=== PATIENT | male | born 1965 | race African-American/Black ===

== ENCOUNTER 2021-03-28 14:48 | Inpatient (IN) | payer SELFPAY ==
[~2021-03-28] VITALS: Ht 175.3 cm; Wt 182.8 kg
[2021-03-28 16:14] LABS: BG BASE EXCESS 0.6 mmol/L (-2.0-2.0); BG CARBOXYHEMOGLOBIN 0.3 % (0.5-1.5); BG DEOXYHEMOGLOBIN 1.1 % (0.0-5.0); BG FRACTION INSPIRED OXYGEN 100; BG HCO3 ACT 24.3 mmol/L (22.0-26.0); BG METHEMOGLOBIN 0.6 % (0.0-1.5); BG OXYGEN SATURATION 98.9 % (92.0-98.5); BG PCO2 36.5 mmHg (35.0-45.0); BG PH 7.441 (7.350-7.450); BG SAMPLE SITE RIGHT RADIAL; BG TOTAL HEMOGLOBIN 16.8 g/dL (12.0-18.0); BG VENT MODE MASK - NRB
[2021-03-28] MEDS ORDERED: IPRATROPIUM/ALBUTEROL 0.5-3(2.5)MG/3ML NEB HHN ONE (16:30)
[2021-03-28] MEDS ORDERED: PREDNISONE 20MG TABLET PO ONE (16:30)
[2021-03-28] MEDS ORDERED: DEXAMETHASONE 10 MG/ML VIAL IV ONE (16:45)
[2021-03-28] MEDS ORDERED: CEFTRIAXONE 1 G PREMIX 50 ML IV ONE (16:45)
[2021-03-28] MEDS ORDERED: AZITHROMYCIN 500 MG in DEXT 5% WATER 250 ML IV SCH ×2 (16:45→20:45)
[2021-03-28 17:14] LABS: HEMATOCRIT. 49.3 % (42.0-52.0); MEAN CORPUSCULAR HEMOGLOBIN 30.7 pg (28.0-32.0); MEAN PLATELET VOLUME 7.5 fl (7.4-10.4); PLATELET 237 x1000/uL (130-400); RED BLOOD CELL COUNT 5.55 mill/uL (4.7-6.1); RED CELL DISTRIBUTION WIDTH 14.5 % (11.6-14.6)
[2021-03-28 17:19] LABS: CHLORIDE 105 mEq/L (98-107)
[2021-03-28 17:39] LABS: PLATELET ESTIMATE NORMAL
[2021-03-28 20:00] VITALS: BP 132/82
[2021-03-28] MEDS ORDERED: NITROGLYCERIN 0.4MG TABLET SL SL PRN (20:45)
[2021-03-28] MEDS ORDERED: DOCUSATE SODIUM 100MG CAPSULE PO PRN (20:45)
[2021-03-28] MEDS ORDERED: ZOLPIDEM TARTRATE 5MG TABLET PO PRN (20:45)
[2021-03-28] MEDS ORDERED: MAGNESIUM/ALUMINUM HYDROXIDE/SIMETHICONE 30ML UDC PO PRN (20:45)
[2021-03-28] MEDS ORDERED: NA PHOS,M-B/NA PHOS,DI-BA ENEMA 118ML PR PRN (20:45)
[2021-03-28] MEDS ORDERED: ALBUTEROL 6.7GM HFA INHALER ORI PRN (20:45)
[2021-03-28] MEDS ORDERED: ONDANSETRON HCL 4MG/2ML INJ IV PRN (20:45)
[2021-03-28] MEDS ORDERED: KETOROLAC 15MG/ML VIAL IV PRN (20:45)
[2021-03-28 21:00] VITALS: BP 132/82
[2021-03-28] MEDS: FAMOTIDINE 20MG TABLET PO SCH (21:59)
[2021-03-28] MEDS: ASCORBIC ACID 500 MG TABLET PO SCH (21:59)
[2021-03-28] MEDS: GUAIFENESIN/DM 600MG/30MG ER TAB 12HR PO SCH (21:59)
[2021-03-28] MEDS: ENOXAPARIN 40MG/0.4ML SYR SUBCUT SCH (22:01)
[2021-03-28] MEDS: ALBUTEROL 6.7GM HFA INHALER ORI SCH (22:23)
[2021-03-28 22:31] LABS: VITAMIN B12 SERUM >2000 pg/mL pg/mL (211-911)
[2021-03-29 00:10] VITALS: BP 131/78
[2021-03-29 00:39] LABS: ETHANOL BLOOD < 10 mg/dL
[2021-03-29 00:44] LABS: CREATINE KINASE MB FRACTION 1.2 ng/mL (0.5-3.6)
[2021-03-29 00:55] LABS: CREATINE KINASE 2208 IU/L (39-308)
[2021-03-29 00:56] LABS: TOTAL IRON BINDING CAPACITY 209 ug/dL (250-450)
[2021-03-29] MEDS: ALBUTEROL 6.7GM HFA INHALER ORI SCH ×4 (01:19→21:36)
[2021-03-29 04:00] VITALS: BP 126/72
[2021-03-29 07:49] LABS: BASOPHILS % 0.3 % (0.0-2.0); HEMATOCRIT. 47.9 % (42.0-52.0); HEMOGLOBIN. 16.3 g/dL (14.0-18.0); LYMPHOCYTES % 12.1 % (20.0-50.0); MEAN CORPUSCULAR HEMOGLOBIN 30.3 pg (28.0-32.0); MEAN CORPUSCULAR VOLUME 89.3 fL (80.0-94.0); MEAN PLATELET VOLUME 8.1 fl (7.4-10.4); MONOCYTES % 14.1 % (2.0-8.0); NEUTROPHILS % 73.5 % (40.0-76.0); PLATELET 277 x1000/uL (130-400); RED BLOOD CELL COUNT 5.37 mill/uL (4.7-6.1); RED CELL DISTRIBUTION WIDTH 14.6 % (11.6-14.6)
[2021-03-29 07:56] LABS: CHLORIDE 106 mEq/L (98-107)
[2021-03-29 08:00] VITALS: BP 138/91
[2021-03-29 08:04] LABS: LDL CHOLESTEROL 88 mg/dL (5-100)
[2021-03-29 08:06] LABS: HDL CHOLESTEROL 41 mg/dL (40-59); PHOSPHORUS 2.8 mg/dL (2.5-4.9)
[2021-03-29 08:21] LABS: CREATINE KINASE 2046 IU/L (39-308)
[2021-03-29] MEDS ORDERED: CEFTRIAXONE 1 G PREMIX 50 ML IV SCH (09:00)
[2021-03-29] MEDS: ZINC SULFATE 220 MG ( 50 ) CAPSULE PO SCH (09:34)
[2021-03-29] MEDS: GUAIFENESIN/DM 600MG/30MG ER TAB 12HR PO SCH ×2 (09:34→21:18)
[2021-03-29] MEDS: FAMOTIDINE 20MG TABLET PO SCH ×2 (09:34→21:18)
[2021-03-29] MEDS: DEXAMETHASONE 10 MG/ML VIAL IV SCH (09:34)
[2021-03-29] MEDS: ENOXAPARIN 40MG/0.4ML SYR SUBCUT SCH ×2 (09:34→21:18)
[2021-03-29] MEDS: CHOLECALCIFEROL (D3) 1000 UNIT TABLET PO SCH (09:34)
[2021-03-29] MEDS: ASCORBIC ACID 500 MG TABLET PO SCH ×2 (09:34→21:18)
[2021-03-29 12:00] VITALS: BP 131/85
[2021-03-29 16:00] VITALS: BP 132/99
[2021-03-29] MEDS: CEFTRIAXONE 1,000 MG in DEXTROSE 5% WATER 50 ML IV SCH (16:13)
[2021-03-29] MEDS: AZITHROMYCIN 500MG in DEXTROSE 5% WATER 250ML IV SCH (17:07)
[2021-03-29 20:00] VITALS: BP 121/62
[2021-03-30] VITALS: BP 116/71
[2021-03-30] MEDS: ALBUTEROL 6.7GM HFA INHALER ORI SCH ×4 (03:08→21:07)
[2021-03-30 04:00] VITALS: BP 104/62
[2021-03-30 08:00] VITALS: BP 129/63
[2021-03-30] MEDS: ENOXAPARIN 40MG/0.4ML SYR SUBCUT SCH ×2 (08:54→21:07)
[2021-03-30 08:55] LABS: C REACTIVE PROTEIN QUANT 7.8 mg/L (0.0-3.0)
[2021-03-30] MEDS: GUAIFENESIN/DM 600MG/30MG ER TAB 12HR PO SCH ×2 (08:55→21:06)
[2021-03-30] MEDS: CHOLECALCIFEROL (D3) 1000 UNIT TABLET PO SCH (08:55)
[2021-03-30] MEDS: DEXAMETHASONE 10 MG/ML VIAL IV SCH (08:55)
[2021-03-30] MEDS: ZINC SULFATE 220 MG ( 50 ) CAPSULE PO SCH (08:55)
[2021-03-30] MEDS: FAMOTIDINE 20MG TABLET PO SCH ×2 (08:55→21:06)
[2021-03-30] MEDS: ASCORBIC ACID 500 MG TABLET PO SCH ×2 (08:55→21:06)
[2021-03-30 12:00] VITALS: BP 119/75
[2021-03-30 15:11] LABS: *AMPHETAMINES SCREEN URINE NEGATIVE (NEGATIVE); *BARBITURATES SCREEN URINE NEGATIVE (NEGATIVE); *BENZODIAZEPINES SCREEN URINE NEGATIVE (NEGATIVE); *COCAINE SCREEN URINE NEGATIVE (NEGATIVE); CANNABINOID URINE SCREEN NEGATIVE (NEGATIVE); METHADONE URINE SCREEN NEGATIVE (NEGATIVE); OPIATES URINE SCREEN NEGATIVE (NEGATIVE); PHENCYCLIDINE URINE SCREEN NEGATIVE (NEGATIVE)
[2021-03-30 15:55] VITALS: BP 133/84
[2021-03-30] MEDS: CEFTRIAXONE 1,000 MG in DEXTROSE 5% WATER 50 ML IV SCH (17:00)
[2021-03-30] MEDS: AZITHROMYCIN 500MG in DEXTROSE 5% WATER 250ML IV SCH (17:01)
[2021-03-30 18:47] LABS: CLARITY URINE CLOUDY (CLEAR); COLOR URINE ORANGE (YELLOW); KETONES URINE TRACE (NEGATIVE); LEUKOCYTE ESTERASE URINE 2+ (NEGATIVE); NITRITE URINE POSITIVE (NEGATIVE); OCCULT BLOOD URINE NEGATIVE (NEGATIVE); PH URINE 5.5 (4.5-8.0); PROTEIN URINE 1+ (NEGATIVE); SPECIFIC GRAVITY URINE 1.033 (1.005-1.030)
[2021-03-30 20:00] VITALS: BP_SYST 114; BP_SYST 137; BP_DIAS 66; BP_DIAS 88
[2021-03-31] VITALS: BP 123/67
[2021-03-31 04:00] VITALS: BP 111/77
[2021-03-31] MEDS: ALBUTEROL 6.7GM HFA INHALER ORI SCH ×4 (04:17→21:38)
[2021-03-31 08:00] VITALS: BP 124/70
[2021-03-31] MEDS: FAMOTIDINE 20MG TABLET PO SCH ×2 (08:40→21:36)
[2021-03-31] MEDS: CHOLECALCIFEROL (D3) 1000 UNIT TABLET PO SCH (08:40)
[2021-03-31] MEDS: ZINC SULFATE 220 MG ( 50 ) CAPSULE PO SCH (08:40)
[2021-03-31] MEDS: GUAIFENESIN/DM 600MG/30MG ER TAB 12HR PO SCH ×2 (08:40→21:36)
[2021-03-31] MEDS: ASCORBIC ACID 500 MG TABLET PO SCH ×2 (08:40→21:37)
[2021-03-31] MEDS: ENOXAPARIN 40MG/0.4ML SYR SUBCUT SCH ×2 (08:40→21:36)
[2021-03-31] MEDS: DEXAMETHASONE 10 MG/ML VIAL IV SCH (08:40)
[2021-03-31 12:00] VITALS: BP 136/88
[2021-03-31 16:00] VITALS: BP 141/81
[2021-03-31] MEDS: CEFTRIAXONE 1,000 MG in DEXTROSE 5% WATER 50 ML IV SCH (16:04)
[2021-03-31] MEDS: AZITHROMYCIN 500MG in DEXTROSE 5% WATER 250ML IV SCH (17:07)
[2021-03-31 20:00] VITALS: BP 175/100
[2021-03-31] MEDS: CLONIDINE 0.1MG TABLET PO PRN (21:36)
[2021-04-01] VITALS: BP 148/85
[2021-04-01 04:00] VITALS: BP 133/75
[2021-04-01] MEDS: ALBUTEROL 6.7GM HFA INHALER ORI SCH ×4 (04:03→21:59)
[2021-04-01 08:00] VITALS: BP 119/79
[2021-04-01] MEDS: CHOLECALCIFEROL (D3) 1000 UNIT TABLET PO SCH (09:43)
[2021-04-01] MEDS: GUAIFENESIN/DM 600MG/30MG ER TAB 12HR PO SCH ×2 (09:43→21:59)
[2021-04-01] MEDS: FAMOTIDINE 20MG TABLET PO SCH ×2 (09:43→22:00)
[2021-04-01] MEDS: ZINC SULFATE 220 MG ( 50 ) CAPSULE PO SCH (09:43)
[2021-04-01] MEDS: ENOXAPARIN 40MG/0.4ML SYR SUBCUT SCH ×2 (09:44→21:59)
[2021-04-01] MEDS: DEXAMETHASONE 10 MG/ML VIAL IV SCH (09:44)
[2021-04-01] MEDS: ASCORBIC ACID 500 MG TABLET PO SCH ×2 (09:45→22:00)
[2021-04-01 12:00] VITALS: BP 138/91
[2021-04-01 16:00] VITALS: BP 125/68
[2021-04-01] MEDS: CEFTRIAXONE 1,000 MG in DEXTROSE 5% WATER 50 ML IV SCH (16:56)
[2021-04-01] MEDS: AZITHROMYCIN 500MG in DEXTROSE 5% WATER 250ML IV SCH (17:44)
[2021-04-01 20:00] VITALS: BP 140/73
[2021-04-02] VITALS: BP 124/79
[2021-04-02] MEDS: ALBUTEROL 6.7GM HFA INHALER ORI SCH ×4 (03:30→20:58)
[2021-04-02 04:00] VITALS: BP 139/82
[2021-04-02 08:00] VITALS: BP 142/63
[2021-04-02] MEDS: GUAIFENESIN 200MG/10ML SUGAR FREE UDC PO PRN (09:00)
[2021-04-02] MEDS: ASCORBIC ACID 500 MG TABLET PO SCH ×2 (09:00→20:58)
[2021-04-02] MEDS: GUAIFENESIN/DM 600MG/30MG ER TAB 12HR PO SCH ×2 (09:00→20:58)
[2021-04-02] MEDS: FAMOTIDINE 20MG TABLET PO SCH ×2 (09:00→20:58)
[2021-04-02] MEDS: ZINC SULFATE 220 MG ( 50 ) CAPSULE PO SCH (09:00)
[2021-04-02] MEDS: CHOLECALCIFEROL (D3) 1000 UNIT TABLET PO SCH (09:00)
[2021-04-02] MEDS: DEXAMETHASONE 10 MG/ML VIAL IV SCH (09:00)
[2021-04-02] MEDS: ENOXAPARIN 40MG/0.4ML SYR SUBCUT SCH ×2 (09:01→20:58)
[2021-04-02 12:00] VITALS: BP 128/56
[2021-04-02 16:00] VITALS: BP 137/60
[2021-04-02] MEDS: CEFTRIAXONE 1,000 MG in DEXTROSE 5% WATER 50 ML IV SCH (16:00)
[2021-04-02 20:00] VITALS: BP 142/90
[2021-04-03 00:32] VITALS: BP 126/74
[2021-04-03] MEDS: ALBUTEROL 6.7GM HFA INHALER ORI SCH ×2 (03:40→20:22)
[2021-04-03 04:00] VITALS: BP 145/89
[2021-04-03 08:08] VITALS: BP 118/60
[2021-04-03] MEDS: CHOLECALCIFEROL (D3) 1000 UNIT TABLET PO SCH (08:44)
[2021-04-03] MEDS: ZINC SULFATE 220 MG ( 50 ) CAPSULE PO SCH (08:45)
[2021-04-03] MEDS: FAMOTIDINE 20MG TABLET PO SCH ×2 (08:45→20:11)
[2021-04-03] MEDS: DEXAMETHASONE 10 MG/ML VIAL IV SCH (08:45)
[2021-04-03] MEDS: ASCORBIC ACID 500 MG TABLET PO SCH ×2 (08:45→20:11)
[2021-04-03] MEDS: GUAIFENESIN/DM 600MG/30MG ER TAB 12HR PO SCH ×2 (09:06→20:11)
[2021-04-03] MEDS: ENOXAPARIN 40MG/0.4ML SYR SUBCUT SCH ×2 (09:07→20:12)
[2021-04-03 12:00] VITALS: BP 141/79
[2021-04-03 16:00] VITALS: BP 128/58
[2021-04-03 20:00] VITALS: BP 135/75
[2021-04-04] VITALS (7 sets, daily range): BP systolic 117–142; BP diastolic 64–91
[2021-04-04] MEDS: ALBUTEROL 6.7GM HFA INHALER ORI SCH ×4 (03:00→21:02)
[2021-04-04] MEDS: DEXAMETHASONE 10 MG/ML VIAL IV SCH (08:10)
[2021-04-04] MEDS: FAMOTIDINE 20MG TABLET PO SCH ×2 (08:11→21:03)
[2021-04-04] MEDS: CHOLECALCIFEROL (D3) 1000 UNIT TABLET PO SCH (08:11)
[2021-04-04] MEDS: ENOXAPARIN 40MG/0.4ML SYR SUBCUT SCH ×2 (08:11→21:03)
[2021-04-04] MEDS: GUAIFENESIN/DM 600MG/30MG ER TAB 12HR PO SCH ×2 (08:11→21:03)
[2021-04-04] MEDS: ZINC SULFATE 220 MG ( 50 ) CAPSULE PO SCH (08:11)
[2021-04-04] MEDS: ASCORBIC ACID 500 MG TABLET PO SCH ×2 (08:11→21:02)
[2021-04-04] MEDS: ACETAMINOPHEN 325MG TABLET PO PRN (21:02)
[2021-04-05] MEDS: ALBUTEROL 6.7GM HFA INHALER ORI SCH ×4 (03:00→20:29)
[2021-04-05 04:00] VITALS: BP 120/68
[2021-04-05 08:00] VITALS: BP 129/75
[2021-04-05 08:00] LABS: BASOPHILS % 0.2 % (0.0-2.0); EOSINOPHILS % 0.3 % (0.0-5.0); HEMATOCRIT. 47.2 % (42.0-52.0); HEMOGLOBIN. 16.3 g/dL (14.0-18.0); LYMPHOCYTES % 9.9 % (20.0-50.0); MEAN CORPUSCULAR HEMOGLOBIN 30.8 pg (28.0-32.0); MEAN PLATELET VOLUME 7.7 fl (7.4-10.4); MONOCYTES % 7.9 % (2.0-8.0); NEUTROPHILS % 81.7 % (40.0-76.0); PLATELET 574 x1000/uL (130-400); RED CELL DISTRIBUTION WIDTH 13.9 % (11.6-14.6)
[2021-04-05 08:16] LABS: CHLORIDE 107 mEq/L (98-107)
[2021-04-05] MEDS: DEXAMETHASONE 10 MG/ML VIAL IV SCH (08:40)
[2021-04-05] MEDS: ASCORBIC ACID 500 MG TABLET PO SCH ×2 (09:32→20:28)
[2021-04-05] MEDS: GUAIFENESIN/DM 600MG/30MG ER TAB 12HR PO SCH ×2 (09:32→20:28)
[2021-04-05] MEDS: ENOXAPARIN 40MG/0.4ML SYR SUBCUT SCH ×2 (09:33→20:28)
[2021-04-05] MEDS: FAMOTIDINE 20MG TABLET PO SCH ×2 (09:33→20:28)
[2021-04-05] MEDS: CHOLECALCIFEROL (D3) 1000 UNIT TABLET PO SCH (09:33)
[2021-04-05] MEDS: ZINC SULFATE 220 MG ( 50 ) CAPSULE PO SCH (09:33)
[2021-04-05 12:00] VITALS: BP 133/78
[2021-04-05 16:00] VITALS: BP 131/77
[2021-04-05 20:00] VITALS: BP 129/81
[2021-04-06] VITALS: BP 133/88
[2021-04-06] MEDS: ALBUTEROL 6.7GM HFA INHALER ORI SCH ×4 (03:30→20:44)
[2021-04-06 04:00] VITALS: BP 129/77
[2021-04-06 08:00] VITALS: BP 131/86
[2021-04-06] MEDS: GUAIFENESIN/DM 600MG/30MG ER TAB 12HR PO SCH ×2 (08:51→20:44)
[2021-04-06] MEDS: ASCORBIC ACID 500 MG TABLET PO SCH ×2 (08:51→20:44)
[2021-04-06] MEDS: ZINC SULFATE 220 MG ( 50 ) CAPSULE PO SCH (08:51)
[2021-04-06] MEDS: CHOLECALCIFEROL (D3) 1000 UNIT TABLET PO SCH (08:51)
[2021-04-06] MEDS: FAMOTIDINE 20MG TABLET PO SCH ×2 (08:51→20:44)
[2021-04-06] MEDS: ENOXAPARIN 40MG/0.4ML SYR SUBCUT SCH ×2 (09:00→20:44)
[2021-04-06] MEDS: DEXAMETHASONE 10 MG/ML VIAL IV SCH (10:02)
[2021-04-06 12:00] VITALS: BP 120/66
[2021-04-06 16:00] VITALS: BP 127/69
[2021-04-06 20:00] VITALS: BP 136/76
[2021-04-07] VITALS: BP 134/82
[2021-04-07] MEDS: ALBUTEROL 6.7GM HFA INHALER ORI SCH ×4 (02:15→21:32)
[2021-04-07 04:00] VITALS: BP 123/80
[2021-04-07 08:00] VITALS: BP 121/85
[2021-04-07] MEDS: ASCORBIC ACID 500 MG TABLET PO SCH ×2 (09:04→21:11)
[2021-04-07] MEDS: GUAIFENESIN/DM 600MG/30MG ER TAB 12HR PO SCH ×2 (09:04→21:11)
[2021-04-07] MEDS: CHOLECALCIFEROL (D3) 1000 UNIT TABLET PO SCH (09:04)
[2021-04-07] MEDS: ZINC SULFATE 220 MG ( 50 ) CAPSULE PO SCH (09:04)
[2021-04-07] MEDS: FAMOTIDINE 20MG TABLET PO SCH ×2 (09:04→21:11)
[2021-04-07] MEDS: ENOXAPARIN 40MG/0.4ML SYR SUBCUT SCH ×2 (09:07→21:11)
[2021-04-07 12:00] VITALS: BP 129/81
[2021-04-07 16:00] VITALS: BP 133/87
[2021-04-07 20:00] VITALS: BP 138/82
[2021-04-08] VITALS: BP 135/95
[2021-04-08] MEDS: ALBUTEROL 6.7GM HFA INHALER ORI SCH (02:15)
[2021-04-08 08:00] VITALS: BP 128/80
[2021-04-08] MEDS: FAMOTIDINE 20MG TABLET PO SCH ×2 (08:46→22:09)
[2021-04-08] MEDS: ZINC SULFATE 220 MG ( 50 ) CAPSULE PO SCH (08:46)
[2021-04-08] MEDS: CHOLECALCIFEROL (D3) 1000 UNIT TABLET PO SCH (08:46)
[2021-04-08] MEDS: ASCORBIC ACID 500 MG TABLET PO SCH ×2 (08:46→22:09)
[2021-04-08] MEDS: GUAIFENESIN/DM 600MG/30MG ER TAB 12HR PO SCH ×2 (08:46→22:09)
[2021-04-08] MEDS: ENOXAPARIN 40MG/0.4ML SYR SUBCUT SCH ×2 (08:49→22:09)
[2021-04-08 12:00] VITALS: BP 123/87
[2021-04-08] MEDS: ALBUTEROL (0.083%) 2.5MG/3ML NEB HHN SCH ×2 (12:41→21:58)
[2021-04-08 16:00] VITALS: BP 149/78
[2021-04-08 20:00] VITALS: BP 134/75
[2021-04-09] VITALS (45 sets, daily range): BP systolic 80–160; BP diastolic 26–117
[2021-04-09] MEDS: ALBUTEROL (0.083%) 2.5MG/3ML NEB HHN SCH ×4 (02:54→20:41)
[2021-04-09 08:39] LABS: BG BASE EXCESS -0.6 mmol/L (-2.0-2.0); BG CARBOXYHEMOGLOBIN 0.3 % (0.5-1.5); BG DEOXYHEMOGLOBIN 13.6 % (0.0-5.0); BG FRACTION INSPIRED OXYGEN 99.9; BG HCO3 ACT 22.6 mmol/L (22.0-26.0); BG METHEMOGLOBIN 0.5 % (0.0-1.5); BG OXYGEN SATURATION 86.3 % (92.0-98.5); BG OXYHEMOGLOBIN 85.6 % (94.0-97.0); BG PCO2 33.9 mmHg (35.0-45.0); BG PH 7.442 (7.350-7.450); BG PO2 49.2 mmHg (75.0-100.0); BG SAMPLE SITE RIGHT RADIAL; BG TOTAL HEMOGLOBIN 18.2 g/dL (12.0-18.0); BG VENT MODE MASK - NRB
[2021-04-09] MEDS: ZINC SULFATE 220 MG ( 50 ) CAPSULE PO SCH (09:23)
[2021-04-09] MEDS: ENOXAPARIN 40MG/0.4ML SYR SUBCUT SCH ×2 (09:23→21:16)
[2021-04-09] MEDS: CHOLECALCIFEROL (D3) 1000 UNIT TABLET PO SCH (09:23)
[2021-04-09] MEDS: GUAIFENESIN/DM 600MG/30MG ER TAB 12HR PO SCH ×2 (09:23→21:16)
[2021-04-09] MEDS: ASCORBIC ACID 500 MG TABLET PO SCH ×2 (09:24→21:16)
[2021-04-09] MEDS: FAMOTIDINE 20MG TABLET PO SCH ×2 (09:28→21:16)
[2021-04-09 10:42] LABS: BG BASE EXCESS -1.1 mmol/L (-2.0-2.0); BG CARBOXYHEMOGLOBIN 0.3 % (0.5-1.5); BG DEOXYHEMOGLOBIN 11.7 % (0.0-5.0); BG FRACTION INSPIRED OXYGEN 100; BG HCO3 ACT 22.6 mmol/L (22.0-26.0); BG METHEMOGLOBIN 0.3 % (0.0-1.5); BG OXYGEN SATURATION 88.2 % (92.0-98.5); BG OXYHEMOGLOBIN 87.7 % (94.0-97.0); BG PCO2 35.5 mmHg (35.0-45.0); BG PH 7.422 (7.350-7.450); BG PO2 53.1 mmHg (75.0-100.0); BG SAMPLE SITE RIGHT RADIAL; BG TOTAL RESPIRATORY RATE 41 b/min; BG VENT MODE MASK - BIPAP
[2021-04-09 11:40] LABS: BG BASE EXCESS -1.3 mmol/L (-2.0-2.0); BG CARBOXYHEMOGLOBIN 0.4 % (0.5-1.5); BG DEOXYHEMOGLOBIN 7.3 % (0.0-5.0); BG HCO3 ACT 21.7 mmol/L (22.0-26.0); BG METHEMOGLOBIN 0.6 % (0.0-1.5); BG OXYGEN SATURATION 92.6 % (92.0-98.5); BG OXYHEMOGLOBIN 91.7 % (94.0-97.0); BG PCO2 32.7 mmHg (35.0-45.0); BG PO2 63.2 mmHg (75.0-100.0); BG SAMPLE SITE RIGHT RADIAL; BG TOTAL HEMOGLOBIN 18.1 g/dL (12.0-18.0); BG VENT MODE MASK - BIPAP
[2021-04-09] MEDS: DEXAMETHASONE 10 MG/ML VIAL IV SCH (13:45)
[2021-04-09] MEDS: DEXT 5%/0.45% NACL 1000ML 1,000 ML IV SCH (13:46)
[2021-04-09] MEDS ORDERED: PIPERACILLIN/TAZOBACTAM 3.375 G/VIAL IV SCH (15:00)
[2021-04-09] MEDS: PIPERACILLIN/TAZOBACTAM 3.375G in DEXT 5% WATER 50ML IV SCH ×2 (15:16→21:16)
[2021-04-09] MEDS: AZITHROMYCIN 500 MG in DEXT 5% WATER 250 ML IV SCH (16:03)
[2021-04-09 20:12] LABS: CHLORIDE 114 mEq/L (98-107)
[2021-04-09 20:42] LABS: HEMATOCRIT. 47.8 % (42.0-52.0); HEMOGLOBIN. 16.5 g/dL (14.0-18.0); MEAN CORPUSCULAR HEMOGLOBIN 30.9 pg (28.0-32.0); MEAN CORPUSCULAR VOLUME 89.5 fL (80.0-94.0); MEAN PLATELET VOLUME 8.4 fl (7.4-10.4); PLATELET 631 x1000/uL (130-400); RED BLOOD CELL COUNT 5.35 mill/uL (4.7-6.1); RED CELL DISTRIBUTION WIDTH 14.3 % (11.6-14.6)
[2021-04-09 21:58] LABS: PLATELET ESTIMATE INCREASED
[2021-04-10] VITALS (71 sets, daily range): BP systolic 98–151; BP diastolic 42–106
[2021-04-10] MEDS: ALBUTEROL (0.083%) 2.5MG/3ML NEB HHN SCH ×3 (02:23→20:32)
[2021-04-10] MEDS: PIPERACILLIN/TAZOBACTAM 3.375G in DEXT 5% WATER 50ML IV SCH ×3 (05:11→21:08)
[2021-04-10] MEDS: DEXT 5%/0.45% NACL 1000ML 1,000 ML IV SCH ×2 (05:11→21:07)
[2021-04-10 05:45] LABS: HEMATOCRIT. 48.8 % (42.0-52.0); HEMOGLOBIN. 16.6 g/dL (14.0-18.0); MEAN CORPUSCULAR HEMOGLOBIN 30.5 pg (28.0-32.0); MEAN CORPUSCULAR VOLUME 89.7 fL (80.0-94.0); MEAN PLATELET VOLUME 8.9 fl (7.4-10.4); PLATELET 517 x1000/uL (130-400); RED BLOOD CELL COUNT 5.45 mill/uL (4.7-6.1); RED CELL DISTRIBUTION WIDTH 14.4 % (11.6-14.6)
[2021-04-10 05:48] LABS: CHLORIDE 114 mEq/L (98-107)
[2021-04-10] MEDS: FAMOTIDINE 20MG TABLET PO SCH ×2 (08:08→21:07)
[2021-04-10] MEDS: CHOLECALCIFEROL (D3) 1000 UNIT TABLET PO SCH (08:08)
[2021-04-10] MEDS: ZINC SULFATE 220 MG ( 50 ) CAPSULE PO SCH (08:08)
[2021-04-10] MEDS: GUAIFENESIN/DM 600MG/30MG ER TAB 12HR PO SCH ×2 (08:08→20:45)
[2021-04-10] MEDS: ENOXAPARIN 40MG/0.4ML SYR SUBCUT SCH ×2 (08:09→21:07)
[2021-04-10] MEDS: DEXAMETHASONE 10 MG/ML VIAL IV SCH (08:09)
[2021-04-10] MEDS: ASCORBIC ACID 500 MG TABLET PO SCH ×2 (08:09→21:07)
[2021-04-10 09:33] LABS: BG BASE EXCESS 0.2 mmol/L (-2.0-2.0); BG CARBOXYHEMOGLOBIN 0.3 % (0.5-1.5); BG DEOXYHEMOGLOBIN 11.6 % (0.0-5.0); BG FRACTION INSPIRED OXYGEN 100; BG HCO3 ACT 24.3 mmol/L (22.0-26.0); BG METHEMOGLOBIN 0.1 % (0.0-1.5); BG OXYGEN SATURATION 88.4 % (92.0-98.5); BG PCO2 37.9 mmHg (35.0-45.0); BG PH 7.424 (7.350-7.450); BG PO2 52.5 mmHg (75.0-100.0); BG SAMPLE SITE RIGHT RADIAL; BG TOTAL HEMOGLOBIN 16.8 g/dL (12.0-18.0); BG VENT MODE MASK - BIPAP
[2021-04-10 12:18] LABS: PLATELET ESTIMATE INCREASED
[2021-04-10] MEDS: AZITHROMYCIN 500 MG in DEXT 5% WATER 250 ML IV SCH (15:34)
[2021-04-11] VITALS (39 sets, daily range): BP systolic 82–148; BP diastolic 53–95
[2021-04-11] MEDS: ALBUTEROL (0.083%) 2.5MG/3ML NEB HHN SCH ×4 (01:28→20:42)
[2021-04-11] MEDS: PIPERACILLIN/TAZOBACTAM 3.375G in DEXT 5% WATER 50ML IV SCH ×4 (03:38→21:20)
[2021-04-11] MEDS: GUAIFENESIN/DM 600MG/30MG ER TAB 12HR PO SCH ×2 (08:45→20:45)
[2021-04-11] MEDS: CHOLECALCIFEROL (D3) 1000 UNIT TABLET PO SCH ×2 (09:00→10:32)
[2021-04-11] MEDS: ASCORBIC ACID 500 MG TABLET PO SCH ×3 (09:00→21:00)
[2021-04-11] MEDS: FAMOTIDINE 20MG TABLET PO SCH ×2 (09:00→10:32)
[2021-04-11] MEDS: ZINC SULFATE 220 MG ( 50 ) CAPSULE PO SCH ×2 (09:00→10:32)
[2021-04-11] MEDS: ENOXAPARIN 40MG/0.4ML SYR SUBCUT SCH ×2 (10:32→21:20)
[2021-04-11] MEDS: DEXAMETHASONE 10 MG/ML VIAL IV SCH (10:32)
[2021-04-11] MEDS: DEXT 5%/0.45% NACL 1000ML 1,000 ML IV SCH (12:14)
[2021-04-11] MEDS: AZITHROMYCIN 500 MG in DEXT 5% WATER 250 ML IV SCH (16:55)
[2021-04-11] MEDS: PANTOPRAZOLE SODIUM 40 MG/VIAL IV SCH (21:20)
[2021-04-12] VITALS (66 sets, daily range): BP systolic 68–194; BP diastolic 18–135
[2021-04-12] MEDS: SODIUM CHLORIDE 3% FOR INH 4ML UD NEB INH SCH (00:12)
[2021-04-12] MEDS: ALBUTEROL (0.083%) 2.5MG/3ML NEB HHN SCH ×4 (00:29→17:12)
[2021-04-12] MEDS: DEXT 5%/0.45% NACL 1000ML 1,000 ML IV SCH ×2 (04:02→19:00)
[2021-04-12] MEDS: PIPERACILLIN/TAZOBACTAM 3.375G in DEXT 5% WATER 50ML IV SCH ×4 (04:02→21:25)
[2021-04-12 06:32] LABS: HEMATOCRIT 46.6 % (42.0-52.0); HEMOGLOBIN 15.6 g/dL (14.0-18.0); MEAN CORPUSCULAR VOLUME 89.7 fL (80.0-94.0); PLATELET 514 x1000/uL (130-400); RED BLOOD CELL COUNT 5.19 mill/uL (4.7-6.1); RED CELL DISTRIBUTION WIDTH 14.4 % (11.6-14.6)
[2021-04-12 06:34] LABS: CHLORIDE 115 mEq/L (98-107)
[2021-04-12] MEDS ORDERED: ETOMIDATE 2MG/ML 10ML VIAL IV ONE (07:41)
[2021-04-12] MEDS ORDERED: VECURONIUM BROMIDE 10 MG/VIAL IV ONE (07:41)
[2021-04-12] MEDS ORDERED: SODIUM CHLORIDE 0.9% 10ML VIAL ONE (07:41)
[2021-04-12] MEDS: GUAIFENESIN/DM 600MG/30MG ER TAB 12HR PO SCH ×2 (08:45→21:25)
[2021-04-12 09:30] LABS: BG BASE EXCESS 1.2 mmol/L (-2.0-2.0); BG CARBOXYHEMOGLOBIN 1.2 % (0.5-1.5); BG DEOXYHEMOGLOBIN 14.3 % (0.0-5.0); BG FRACTION INSPIRED OXYGEN 100; BG HCO3 ACT 25.9 mmol/L (22.0-26.0); BG METHEMOGLOBIN 0.5 % (0.0-1.5); BG OXYGEN SATURATION 85.5 % (92.0-98.5); BG PCO2 41.5 mmHg (35.0-45.0); BG PH 7.413 (7.350-7.450); BG PO2 48.9 mmHg (75.0-100.0); BG TOTAL HEMOGLOBIN 16.1 g/dL (12.0-18.0); BG VENT MODE MASK - BIPAP
[2021-04-12] MEDS ORDERED: METOPROLOL TARTRATE 5MG/5ML VIAL IV NR (10:15)
[2021-04-12] MEDS: PANTOPRAZOLE SODIUM 40 MG/VIAL IV SCH (10:23)
[2021-04-12] MEDS: DEXAMETHASONE 10 MG/ML VIAL IV SCH (10:23)
[2021-04-12] MEDS: ENOXAPARIN 40MG/0.4ML SYR SUBCUT SCH ×2 (10:24→21:25)
[2021-04-12] MEDS: ZINC SULFATE 220 MG ( 50 ) CAPSULE PO SCH (10:29)
[2021-04-12] MEDS: CHOLECALCIFEROL (D3) 1000 UNIT TABLET PO SCH (10:30)
[2021-04-12] MEDS: ASCORBIC ACID 500 MG TABLET PO SCH ×2 (10:30→21:25)
[2021-04-12] MEDS ORDERED: LORAZEPAM 2MG/ML CPJ IV SCH (10:45)
[2021-04-12] MEDS: FENTANYL CITRATE/PF 2,500 MCG in SODIUM CHLORIDE 0.9% 200 ML IV PRN (11:23)
[2021-04-12] MEDS: PROPOFOL 10MG/ML 100ML 100 ML IV PRN ×3 (11:24→19:58)
[2021-04-12] MEDS ORDERED: METOPROLOL TARTRATE 5MG/5ML VIAL IV SCH (11:25)
[2021-04-12 11:26] LABS: BG BASE EXCESS -4.2 mmol/L (-2.0-2.0); BG CARBOXYHEMOGLOBIN 0.8 % (0.5-1.5); BG DEOXYHEMOGLOBIN 15.8 % (0.0-5.0); BG FRACTION INSPIRED OXYGEN 100; BG HCO3 ACT 24.9 mmol/L (22.0-26.0); BG METHEMOGLOBIN 0.3 % (0.0-1.5); BG OXYHEMOGLOBIN 83.1 % (94.0-97.0); BG PH 7.222 (7.350-7.450); BG PO2 55.9 mmHg (75.0-100.0); BG SAMPLE SITE LEFT RADIAL; BG TOTAL HEMOGLOBIN 16.8 g/dL (12.0-18.0); BG VENT MODE VENT - AC
[2021-04-12] MEDS ORDERED: SODIUM CHLORIDE 3% FOR INH 15ML VIAL NEB INH SCH (12:30)
[2021-04-12] MEDS: ACETYLCYSTEINE 100MG/ML 10% VIAL 4ML INH SCH (12:42)
[2021-04-12] MEDS: AZITHROMYCIN 500 MG in DEXT 5% WATER 250 ML IV SCH (14:43)
[2021-04-12] MEDS: PHENYLEPHRINE 100 MG in DEXT 5% WATER 240 ML IV PRN (15:32)
[2021-04-12] MEDS: ACETAMINOPHEN 325MG TABLET PO PRN ×2 (16:59→23:58)
[2021-04-12] MEDS: IPRATROPIUM BROMIDE (0.02%) 0.5MG/2.5ML NEB HHN SCH (21:02)
[2021-04-13] VITALS (83 sets, daily range): BP systolic 86–195; BP diastolic 49–104
[2021-04-13] MEDS: IPRATROPIUM BROMIDE (0.02%) 0.5MG/2.5ML NEB HHN SCH ×4 (00:12→21:09)
[2021-04-13] MEDS: ACETYLCYSTEINE 100MG/ML 10% VIAL 4ML INH SCH ×2 (00:12→08:30)
[2021-04-13] MEDS: PROPOFOL 10MG/ML 100ML 100 ML IV PRN ×5 (00:34→19:37)
[2021-04-13] MEDS: PIPERACILLIN/TAZOBACTAM 3.375G in DEXT 5% WATER 50ML IV SCH ×4 (02:48→20:32)
[2021-04-13 05:58] LABS: HEMATOCRIT. 44.8 % (42.0-52.0); HEMOGLOBIN. 14.9 g/dL (14.0-18.0); MEAN CORPUSCULAR HEMOGLOBIN 29.9 pg (28.0-32.0); MEAN CORPUSCULAR VOLUME 90.2 fL (80.0-94.0); MEAN PLATELET VOLUME 8.7 fl (7.4-10.4); PLATELET 433 x1000/uL (130-400); RED BLOOD CELL COUNT 4.96 mill/uL (4.7-6.1); RED CELL DISTRIBUTION WIDTH 14.6 % (11.6-14.6)
[2021-04-13 06:01] LABS: CHLORIDE 114 mEq/L (98-107)
[2021-04-13] MEDS: FENTANYL CITRATE/PF 2,500 MCG in SODIUM CHLORIDE 0.9% 200 ML IV PRN ×2 (07:53→22:25)
[2021-04-13] MEDS: ZINC SULFATE 220 MG ( 50 ) CAPSULE PO SCH (08:09)
[2021-04-13] MEDS: DEXAMETHASONE 10 MG/ML VIAL IV SCH (08:09)
[2021-04-13] MEDS: ASCORBIC ACID 500 MG TABLET PO SCH ×2 (08:09→20:32)
[2021-04-13] MEDS: CHOLECALCIFEROL (D3) 1000 UNIT TABLET PO SCH (08:09)
[2021-04-13] MEDS: ENOXAPARIN 40MG/0.4ML SYR SUBCUT SCH ×2 (08:09→20:32)
[2021-04-13] MEDS: PANTOPRAZOLE SODIUM 40 MG/VIAL IV SCH (08:09)
[2021-04-13] MEDS: GUAIFENESIN/DM 600MG/30MG ER TAB 12HR PO SCH ×2 (08:10→20:32)
[2021-04-13] MEDS: SODIUM CHLORIDE 3% FOR INH 4ML UD NEB INH SCH ×2 (08:31→20:55)
[2021-04-13 09:07] LABS: BG BASE EXCESS -0.1 mmol/L (-2.0-2.0); BG CARBOXYHEMOGLOBIN 0.8 % (0.5-1.5); BG DEOXYHEMOGLOBIN 11.9 % (0.0-5.0); BG FRACTION INSPIRED OXYGEN 100; BG HCO3 ACT 26.2 mmol/L (22.0-26.0); BG METHEMOGLOBIN 0.6 % (0.0-1.5); BG OXYGEN SATURATION 87.9 % (92.0-98.5); BG OXYHEMOGLOBIN 86.7 % (94.0-97.0); BG PCO2 48.5 mmHg (35.0-45.0); BG PO2 53.9 mmHg (75.0-100.0); BG SAMPLE SITE RIGHT RADIAL; BG TOTAL HEMOGLOBIN 15.7 g/dL (12.0-18.0); BG VENT MODE VENT- PRVC
[2021-04-13] MEDS: MIDAZOLAM HCL 100 MG in SODIUM CHLORIDE 0.9% 80 ML IV PRN ×2 (09:51→19:36)
[2021-04-13] MEDS: DEXT 5%/0.45% NACL 1000ML 1,000 ML IV SCH ×2 (11:21→23:10)
[2021-04-13] MEDS ORDERED: DILTIAZEM HCL 5MG/ML 5ML VIAL IV NR (11:30)
[2021-04-13] MEDS ORDERED: DILTIAZEM HCL 5MG/ML 5ML VIAL IV PRN (11:45)
[2021-04-13] MEDS ORDERED: DILTIAZEM HCL 30MG TABLET PO SCH (12:00)
[2021-04-13] MEDS ORDERED: ENOXAPARIN 120MG/0.8ML SYR SUBCUT NR (12:03)
[2021-04-13 12:20] LABS: PLATELET ESTIMATE SLIGHTLY INCREASED
[2021-04-13] MEDS: AZITHROMYCIN 500 MG in DEXT 5% WATER 250 ML IV SCH (14:56)
[2021-04-13] MEDS: DILTIAZEM HCL 60MG TABLET PO SCH ×2 (17:57→23:10)
[2021-04-13] MEDS: ACETAMINOPHEN 325MG TABLET PO PRN (20:32)
[2021-04-13] MEDS ORDERED: ENOXAPARIN 150MG/ML SYR SUBCUT SCH (23:00)
[2021-04-13] MEDS: PHENYLEPHRINE 100 MG in DEXT 5% WATER 240 ML IV PRN (23:10)
[2021-04-14] VITALS (98 sets, daily range): BP systolic 66–155; BP diastolic 20–83
[2021-04-14] MEDS: IPRATROPIUM BROMIDE (0.02%) 0.5MG/2.5ML NEB HHN SCH ×5 (00:30→16:15)
[2021-04-14] MEDS: ACETYLCYSTEINE 100MG/ML 10% VIAL 4ML INH SCH ×3 (00:30→16:15)
[2021-04-14] MEDS: SODIUM CHLORIDE 3% FOR INH 4ML UD NEB INH SCH ×5 (01:15→20:40)
[2021-04-14] MEDS: PROPOFOL 10MG/ML 100ML 100 ML IV PRN ×3 (02:57→18:27)
[2021-04-14] MEDS: PIPERACILLIN/TAZOBACTAM 3.375G in DEXT 5% WATER 50ML IV SCH ×4 (02:57→20:41)
[2021-04-14 06:24] LABS: BASOPHILS % 0.6 % (0.0-2.0); EOSINOPHILS % 0.7 % (0.0-5.0); HEMATOCRIT. 43.5 % (42.0-52.0); HEMOGLOBIN. 14.2 g/dL (14.0-18.0); LYMPHOCYTES % 7.7 % (20.0-50.0); MEAN CORPUSCULAR VOLUME 91.6 fL (80.0-94.0); MEAN PLATELET VOLUME 9.5 fl (7.4-10.4); MONOCYTES % 7.4 % (2.0-8.0); NEUTROPHILS % 83.6 % (40.0-76.0); PLATELET 359 x1000/uL (130-400); RED BLOOD CELL COUNT 4.75 mill/uL (4.7-6.1); RED CELL DISTRIBUTION WIDTH 14.6 % (11.6-14.6)
[2021-04-14 06:31] LABS: CHLORIDE 113 mEq/L (98-107)
[2021-04-14] MEDS: DILTIAZEM HCL 60MG TABLET PO SCH ×4 (06:41→23:22)
[2021-04-14] MEDS: MIDAZOLAM HCL 100 MG in SODIUM CHLORIDE 0.9% 80 ML IV PRN ×2 (07:59→22:26)
[2021-04-14] MEDS ORDERED: SODIUM CHLORIDE 0.9% 10ML VIAL ONE (08:23)
[2021-04-14] MEDS ORDERED: EPINEPHRINE 0.1MG/ML (1:10,000) 10ML SYR ONE (08:23)
[2021-04-14] MEDS ORDERED: DEXTROSE 50% WATER 50ML SYRINGE IV ONE (08:23)
[2021-04-14] MEDS ORDERED: VECURONIUM BROMIDE 10 MG/VIAL IV ONE (08:23)
[2021-04-14] MEDS ORDERED: ATROPINE SULFATE 1MG/10ML SYR ONE (08:23)
[2021-04-14] MEDS: GUAIFENESIN/DM 600MG/30MG ER TAB 12HR PO SCH ×2 (08:25→20:42)
[2021-04-14] MEDS: ASPIRIN 81MG TABLET PO SCH (08:25)
[2021-04-14] MEDS: PANTOPRAZOLE SODIUM 40 MG/VIAL IV SCH (08:25)
[2021-04-14] MEDS: ENOXAPARIN 40MG/0.4ML SYR SUBCUT SCH ×2 (08:25→20:42)
[2021-04-14] MEDS: DEXAMETHASONE 10 MG/ML VIAL IV SCH (08:25)
[2021-04-14] MEDS: ZINC SULFATE 220 MG ( 50 ) CAPSULE PO SCH (08:25)
[2021-04-14] MEDS: ASCORBIC ACID 500 MG TABLET PO SCH ×2 (08:29→20:42)
[2021-04-14] MEDS: CHOLECALCIFEROL (D3) 1000 UNIT TABLET PO SCH (08:29)
[2021-04-14 09:07] LABS: BG BASE EXCESS -1.6 mmol/L (-2.0-2.0); BG CARBOXYHEMOGLOBIN 0.9 % (0.5-1.5); BG DEOXYHEMOGLOBIN 0.7 % (0.0-5.0); BG FRACTION INSPIRED OXYGEN 100; BG HCO3 ACT 25.8 mmol/L (22.0-26.0); BG METHEMOGLOBIN 0.7 % (0.0-1.5); BG OXYGEN SATURATION 99.3 % (92.0-98.5); BG OXYHEMOGLOBIN 97.7 % (94.0-97.0); BG PH 7.297 (7.350-7.450); BG PO2 180.4 mmHg (75.0-100.0); BG SAMPLE SITE RIGHT RADIAL; BG TOTAL HEMOGLOBIN 15.5 g/dL (12.0-18.0); BG VENT MODE PRVC-AC
[2021-04-14] MEDS: FENTANYL CITRATE/PF 2,500 MCG in SODIUM CHLORIDE 0.9% 200 ML IV PRN (15:31)
[2021-04-14] MEDS: ALBUTEROL (0.083%) 2.5MG/3ML NEB HHN PRN (20:41)
[2021-04-15] VITALS (92 sets, daily range): BP systolic 104–148; BP diastolic 54–93
[2021-04-15] MEDS: ACETYLCYSTEINE 100MG/ML 10% VIAL 4ML INH SCH ×3 (00:10→16:29)
[2021-04-15] MEDS: ALBUTEROL (0.083%) 2.5MG/3ML NEB HHN PRN ×2 (00:10→08:45)
[2021-04-15] MEDS: DEXT 5%/0.45% NACL 1000ML 1,000 ML IV SCH ×3 (01:15→23:46)
[2021-04-15] MEDS: SODIUM CHLORIDE 3% FOR INH 4ML UD NEB INH SCH ×3 (06:00→13:56)
[2021-04-15] MEDS: DILTIAZEM HCL 60MG TABLET PO SCH ×4 (07:14→23:46)
[2021-04-15] MEDS: GUAIFENESIN/DM 600MG/30MG ER TAB 12HR PO SCH ×2 (07:51→20:47)
[2021-04-15] MEDS: IPRATROPIUM BROMIDE (0.02%) 0.5MG/2.5ML NEB HHN SCH ×3 (08:13→16:29)
[2021-04-15 08:21] LABS: BG CARBOXYHEMOGLOBIN 0.3 % (0.5-1.5); BG DEOXYHEMOGLOBIN 2.2 % (0.0-5.0); BG FRACTION INSPIRED OXYGEN 100; BG HCO3 ACT 26.9 mmol/L (22.0-26.0); BG METHEMOGLOBIN 0.3 % (0.0-1.5); BG OXYGEN SATURATION 97.8 % (92.0-98.5); BG OXYHEMOGLOBIN 97.2 % (94.0-97.0); BG PCO2 47.9 mmHg (35.0-45.0); BG PH 7.367 (7.350-7.450); BG SAMPLE SITE RIGHT RADIAL; BG TOTAL HEMOGLOBIN 13.4 g/dL (12.0-18.0); BG VENT MODE VENT - AC/PRVC
[2021-04-15 08:51] LABS: HEMOGLOBIN. 12.8 g/dL (14.0-18.0); MEAN CORPUSCULAR HEMOGLOBIN 29.9 pg (28.0-32.0); MEAN CORPUSCULAR VOLUME 91.3 fL (80.0-94.0); MEAN PLATELET VOLUME 9.3 fl (7.4-10.4); PLATELET 338 x1000/uL (130-400); RED BLOOD CELL COUNT 4.27 mill/uL (4.7-6.1); RED CELL DISTRIBUTION WIDTH 14.1 % (11.6-14.6)
[2021-04-15 09:04] LABS: CHLORIDE 110 mEq/L (98-107)
[2021-04-15] MEDS: ASPIRIN 81MG TABLET PO SCH (09:04)
[2021-04-15] MEDS: ZINC SULFATE 220 MG ( 50 ) CAPSULE PO SCH (09:04)
[2021-04-15] MEDS: PANTOPRAZOLE SODIUM 40 MG/VIAL IV SCH (09:04)
[2021-04-15] MEDS: ASCORBIC ACID 500 MG TABLET PO SCH ×2 (09:04→20:47)
[2021-04-15] MEDS: DEXAMETHASONE 10 MG/ML VIAL IV SCH (09:04)
[2021-04-15] MEDS: CHOLECALCIFEROL (D3) 1000 UNIT TABLET PO SCH (09:04)
[2021-04-15] MEDS: ENOXAPARIN 40MG/0.4ML SYR SUBCUT SCH ×2 (09:05→20:47)
[2021-04-15] MEDS: MIDAZOLAM HCL 100 MG in SODIUM CHLORIDE 0.9% 80 ML IV PRN (09:23)
[2021-04-15] MEDS: FENTANYL CITRATE/PF 2,500 MCG in SODIUM CHLORIDE 0.9% 200 ML IV PRN (09:23)
[2021-04-15 11:09] LABS: BG BASE EXCESS 0.5 mmol/L (-2.0-2.0); BG CARBOXYHEMOGLOBIN 0.9 % (0.5-1.5); BG DEOXYHEMOGLOBIN 28.8 % (0.0-5.0); BG FRACTION INSPIRED OXYGEN 100; BG HCO3 ACT 27.8 mmol/L (22.0-26.0); BG METHEMOGLOBIN 0.2 % (0.0-1.5); BG OXYGEN SATURATION 70.9 % (92.0-98.5); BG OXYHEMOGLOBIN 70.1 % (94.0-97.0); BG PCO2 55.7 mmHg (35.0-45.0); BG PH 7.316 (7.350-7.450); BG PO2 36.6 mmHg (75.0-100.0); BG SAMPLE SITE RIGHT RADIAL; BG TOTAL HEMOGLOBIN 14.4 g/dL (12.0-18.0); BG TOTAL RESPIRATORY RATE 30 b/min; BG VENT MODE AC/PRVC
[2021-04-15] MEDS: PROPOFOL 10MG/ML 100ML 100 ML IV PRN ×5 (11:10→22:04)
[2021-04-15 12:56] LABS: BG BASE EXCESS -4.1 mmol/L (-2.0-2.0); BG CARBOXYHEMOGLOBIN 1.2 % (0.5-1.5); BG DEOXYHEMOGLOBIN 6.5 % (0.0-5.0); BG FRACTION INSPIRED OXYGEN 100; BG HCO3 ACT 22.9 mmol/L (22.0-26.0); BG METHEMOGLOBIN 0.5 % (0.0-1.5); BG OXYGEN SATURATION 93.4 % (92.0-98.5); BG OXYHEMOGLOBIN 91.8 % (94.0-97.0); BG PCO2 49.2 mmHg (35.0-45.0); BG PH 7.285 (7.350-7.450); BG PO2 71.2 mmHg (75.0-100.0); BG SAMPLE SITE RIGHT RADIAL; BG VENT MODE AC/PRVC
[2021-04-15] MEDS ORDERED: SODIUM BICARBONATE 8.4% 1 MEQ/ML 50ML SYR IV NR (13:30)
[2021-04-15 13:44] LABS: PLATELET ESTIMATE NORMAL
[2021-04-16] VITALS (67 sets, daily range): BP systolic 100–145; BP diastolic 58–84
[2021-04-16] MEDS: PROPOFOL 10MG/ML 100ML 100 ML IV PRN ×11 (00:08→23:26)
[2021-04-16] MEDS: FENTANYL CITRATE/PF 2,500 MCG in SODIUM CHLORIDE 0.9% 200 ML IV PRN ×3 (03:59→23:51)
[2021-04-16] MEDS: DILTIAZEM HCL 60MG TABLET PO SCH ×3 (05:39→17:53)
[2021-04-16 05:48] LABS: HEMATOCRIT. 37.4 % (42.0-52.0); HEMOGLOBIN. 12.3 g/dL (14.0-18.0); MEAN CORPUSCULAR HEMOGLOBIN 30.1 pg (28.0-32.0); MEAN CORPUSCULAR VOLUME 91.5 fL (80.0-94.0); MEAN PLATELET VOLUME 8.8 fl (7.4-10.4); PLATELET 320 x1000/uL (130-400); RED BLOOD CELL COUNT 4.09 mill/uL (4.7-6.1); RED CELL DISTRIBUTION WIDTH 14.2 % (11.6-14.6)
[2021-04-16 05:50] LABS: CHLORIDE 108 mEq/L (98-107)
[2021-04-16] MEDS: SODIUM CHLORIDE 3% FOR INH 4ML UD NEB INH SCH ×2 (07:48→13:40)
[2021-04-16] MEDS: IPRATROPIUM BROMIDE (0.02%) 0.5MG/2.5ML NEB HHN SCH ×3 (07:48→15:18)
[2021-04-16] MEDS: ACETYLCYSTEINE 100MG/ML 10% VIAL 4ML INH SCH ×2 (07:48→15:18)
[2021-04-16 08:35] LABS: BG BASE EXCESS 0.4 mmol/L (-2.0-2.0); BG CARBOXYHEMOGLOBIN 0.6 % (0.5-1.5); BG DEOXYHEMOGLOBIN 13.1 % (0.0-5.0); BG FRACTION INSPIRED OXYGEN 100; BG HCO3 ACT 27.2 mmol/L (22.0-26.0); BG METHEMOGLOBIN 0.4 % (0.0-1.5); BG OXYGEN SATURATION 86.8 % (92.0-98.5); BG OXYHEMOGLOBIN 85.9 % (94.0-97.0); BG PCO2 52.7 mmHg (35.0-45.0); BG PH 7.331 (7.350-7.450); BG PO2 52.3 mmHg (75.0-100.0); BG SAMPLE SITE RIGHT RADIAL; BG VENT MODE VENT - AC/PRVC
[2021-04-16] MEDS: GUAIFENESIN/DM 600MG/30MG ER TAB 12HR PO SCH (08:45)
[2021-04-16] MEDS: PANTOPRAZOLE SODIUM 40 MG/VIAL IV SCH (09:32)
[2021-04-16] MEDS: GUAIFENESIN 200MG/10ML SUGAR FREE UDC PO PRN (09:32)
[2021-04-16] MEDS: ASCORBIC ACID 500 MG TABLET PO SCH ×2 (09:32→20:51)
[2021-04-16] MEDS: DEXAMETHASONE 10 MG/ML VIAL IV SCH (09:32)
[2021-04-16] MEDS: CHOLECALCIFEROL (D3) 1000 UNIT TABLET PO SCH (09:33)
[2021-04-16] MEDS: ZINC SULFATE 220 MG ( 50 ) CAPSULE PO SCH (09:33)
[2021-04-16] MEDS: ENOXAPARIN 40MG/0.4ML SYR SUBCUT SCH ×2 (09:33→20:51)
[2021-04-16] MEDS: ASPIRIN 81MG TABLET PO SCH (09:33)
[2021-04-16 10:49] LABS: BG BASE EXCESS 2.2 mmol/L (-2.0-2.0); BG CARBOXYHEMOGLOBIN 1.1 % (0.5-1.5); BG DEOXYHEMOGLOBIN 20.4 % (0.0-5.0); BG FRACTION INSPIRED OXYGEN 100; BG HCO3 ACT 30.5 mmol/L (22.0-26.0); BG METHEMOGLOBIN 0.4 % (0.0-1.5); BG OXYGEN SATURATION 79.3 % (92.0-98.5); BG OXYHEMOGLOBIN 78.1 % (94.0-97.0); BG PCO2 64.5 mmHg (35.0-45.0); BG PH 7.293 (7.350-7.450); BG PO2 44.9 mmHg (75.0-100.0); BG SAMPLE SITE RIGHT RADIAL; BG TOTAL HEMOGLOBIN 14.3 g/dL (12.0-18.0); BG VENT MODE PRVC-AC
[2021-04-16 13:02] LABS: BG BASE EXCESS 4.7 mmol/L (-2.0-2.0); BG CARBOXYHEMOGLOBIN 1.1 % (0.5-1.5); BG DEOXYHEMOGLOBIN 7.3 % (0.0-5.0); BG FRACTION INSPIRED OXYGEN 40; BG HCO3 ACT 30.8 mmol/L (22.0-26.0); BG METHEMOGLOBIN 0.4 % (0.0-1.5); BG OXYGEN SATURATION 92.6 % (92.0-98.5); BG OXYHEMOGLOBIN 91.2 % (94.0-97.0); BG PCO2 50.9 mmHg (35.0-45.0); BG PH 7.399 (7.350-7.450); BG PO2 62.8 mmHg (75.0-100.0); BG SAMPLE SITE RIGHT RADIAL; BG TOTAL HEMOGLOBIN 14.2 g/dL (12.0-18.0); BG VENT MODE VENT - AC/PRVC
[2021-04-16 14:44] LABS: PLATELET ESTIMATE NORMAL
[2021-04-16] MEDS: MIDAZOLAM HCL 100 MG in SODIUM CHLORIDE 0.9% 80 ML IV PRN (14:45)
[2021-04-16] MEDS: DEXT 5%/0.45% NACL 1000ML 1,000 ML IV SCH (15:29)
[2021-04-17] VITALS (95 sets, daily range): BP systolic 103–194; BP diastolic 52–126
[2021-04-17] MEDS: PROPOFOL 10MG/ML 100ML 100 ML IV PRN ×8 (01:24→17:18)
[2021-04-17] MEDS: MIDAZOLAM HCL 100 MG in SODIUM CHLORIDE 0.9% 80 ML IV PRN ×2 (01:25→11:59)
[2021-04-17] MEDS: DEXT 5%/0.45% NACL 1000ML 1,000 ML IV SCH ×2 (05:48→22:19)
[2021-04-17] MEDS: DILTIAZEM HCL 60MG TABLET PO SCH ×4 (06:00→17:19)
[2021-04-17 06:28] LABS: HEMATOCRIT. 35.3 % (42.0-52.0); HEMOGLOBIN. 11.7 g/dL (14.0-18.0); MEAN CORPUSCULAR HEMOGLOBIN 29.8 pg (28.0-32.0); MEAN CORPUSCULAR VOLUME 90.1 fL (80.0-94.0); PLATELET 267 x1000/uL (130-400); RED BLOOD CELL COUNT 3.92 mill/uL (4.7-6.1); RED CELL DISTRIBUTION WIDTH 14.3 % (11.6-14.6)
[2021-04-17 07:11] LABS: CHLORIDE 110 mEq/L (98-107)
[2021-04-17] MEDS: FENTANYL CITRATE/PF 2,500 MCG in SODIUM CHLORIDE 0.9% 200 ML IV PRN ×2 (07:38→14:51)
[2021-04-17 07:55] LABS: BG BASE EXCESS 4.9 mmol/L (-2.0-2.0); BG CARBOXYHEMOGLOBIN 0.5 % (0.5-1.5); BG DEOXYHEMOGLOBIN 4.8 % (0.0-5.0); BG FRACTION INSPIRED OXYGEN 100; BG HCO3 ACT 30.9 mmol/L (22.0-26.0); BG METHEMOGLOBIN 0.2 % (0.0-1.5); BG OXYGEN SATURATION 95.2 % (92.0-98.5); BG OXYHEMOGLOBIN 94.5 % (94.0-97.0); BG PCO2 51.9 mmHg (35.0-45.0); BG PH 7.393 (7.350-7.450); BG PO2 73.9 mmHg (75.0-100.0); BG SAMPLE SITE RIGHT RADIAL; BG TOTAL HEMOGLOBIN 12.7 g/dL (12.0-18.0); BG VENT MODE VENT - AC/PRVC
[2021-04-17] MEDS: DEXAMETHASONE 10 MG/ML VIAL IV SCH (08:06)
[2021-04-17] MEDS: ASCORBIC ACID 500 MG TABLET PO SCH ×2 (08:06→20:46)
[2021-04-17] MEDS: PANTOPRAZOLE SODIUM 40 MG/VIAL IV SCH (08:06)
[2021-04-17] MEDS: ENOXAPARIN 40MG/0.4ML SYR SUBCUT SCH ×2 (08:06→20:46)
[2021-04-17] MEDS: ASPIRIN 81MG TABLET PO SCH (08:06)
[2021-04-17] MEDS: ZINC SULFATE 220 MG ( 50 ) CAPSULE PO SCH (08:06)
[2021-04-17] MEDS: CHOLECALCIFEROL (D3) 1000 UNIT TABLET PO SCH (08:06)
[2021-04-17] MEDS: SODIUM CHLORIDE 3% FOR INH 4ML UD NEB INH SCH ×2 (08:46→16:23)
[2021-04-17] MEDS: IPRATROPIUM BROMIDE (0.02%) 0.5MG/2.5ML NEB HHN SCH ×4 (08:46→21:28)
[2021-04-17] MEDS: ACETYLCYSTEINE 100MG/ML 10% VIAL 4ML INH SCH (08:46)
[2021-04-17] MEDS ORDERED: MIDAZOLAM 100MG/100ML PMX 100 ML IV PRN (17:30)
[2021-04-17 22:44] LABS: PLATELET ESTIMATE NORMAL
[2021-04-17] MEDS ORDERED: NOREPINEPHRINE 32 MG in DEXT 5% WATER 218 ML IV PRN (22:45)
[2021-04-17] MEDS ORDERED: ATROPINE SULFATE 1MG/10ML SYR IV NR (23:00)
[2021-04-17 23:21] LABS: CHLORIDE 110 mEq/L (98-107)
[2021-04-18] VITALS (97 sets, daily range): BP systolic 101–229; BP diastolic 57–120
[2021-04-18] MEDS: IPRATROPIUM BROMIDE (0.02%) 0.5MG/2.5ML NEB HHN SCH ×5 (01:03→15:55)
[2021-04-18] MEDS: FENTANYL CITRATE/PF 2,500 MCG in SODIUM CHLORIDE 0.9% 200 ML IV PRN ×3 (02:55→18:43)
[2021-04-18] MEDS: MIDAZOLAM HCL 100 MG in SODIUM CHLORIDE 0.9% 100 ML IV PRN ×3 (05:11→23:47)
[2021-04-18] MEDS: DILTIAZEM HCL 60MG TABLET PO SCH ×2 (06:00)
[2021-04-18 06:02] LABS: CHLORIDE 111 mEq/L (98-107)
[2021-04-18 08:20] LABS: BG BASE EXCESS 3.3 mmol/L (-2.0-2.0); BG CARBOXYHEMOGLOBIN 0.4 % (0.5-1.5); BG DEOXYHEMOGLOBIN 4.6 % (0.0-5.0); BG FRACTION INSPIRED OXYGEN 100; BG HCO3 ACT 29.1 mmol/L (22.0-26.0); BG METHEMOGLOBIN 0.4 % (0.0-1.5); BG OXYGEN SATURATION 95.4 % (92.0-98.5); BG OXYHEMOGLOBIN 94.6 % (94.0-97.0); BG PH 7.391 (7.350-7.450); BG PO2 78.2 mmHg (75.0-100.0); BG SAMPLE SITE RIGHT RADIAL; BG TOTAL HEMOGLOBIN 12.8 g/dL (12.0-18.0); BG TOTAL RESPIRATORY RATE 36 b/min; BG VENT MODE VENT- PRVC
[2021-04-18] MEDS: SODIUM CHLORIDE 3% FOR INH 4ML UD NEB INH SCH ×3 (08:32→15:55)
[2021-04-18 08:57] LABS: HEMATOCRIT. 37.1 % (42.0-52.0); MEAN CORPUSCULAR HEMOGLOBIN 29.8 pg (28.0-32.0); MEAN CORPUSCULAR VOLUME 92.3 fL (80.0-94.0); MEAN PLATELET VOLUME 9.4 fl (7.4-10.4); PLATELET 258 x1000/uL (130-400); RED BLOOD CELL COUNT 4.02 mill/uL (4.7-6.1); RED CELL DISTRIBUTION WIDTH 14.3 % (11.6-14.6)
[2021-04-18] MEDS: ASPIRIN 81MG TABLET PO SCH (09:23)
[2021-04-18] MEDS: ASCORBIC ACID 500 MG TABLET PO SCH ×2 (09:23→21:55)
[2021-04-18] MEDS: DEXAMETHASONE 10 MG/ML VIAL IV SCH (09:23)
[2021-04-18] MEDS: PANTOPRAZOLE SODIUM 40 MG/VIAL IV SCH (09:23)
[2021-04-18] MEDS: CHOLECALCIFEROL (D3) 1000 UNIT TABLET PO SCH (09:24)
[2021-04-18] MEDS: ZINC SULFATE 220 MG ( 50 ) CAPSULE PO SCH (09:24)
[2021-04-18] MEDS: ENOXAPARIN 40MG/0.4ML SYR SUBCUT SCH ×2 (09:24→21:55)
[2021-04-18] MEDS ORDERED: ATROPINE SULFATE 1MG/10ML SYR IV PRN (09:45)
[2021-04-18] MEDS ORDERED: FENTANYL CITRATE/PF 2,500 MCG in SODIUM CHLORIDE 0.9% 200 ML IV PRN (11:00)
[2021-04-18] MEDS: DEXT 5%/0.45% NACL 1000ML 1,000 ML IV SCH (13:14)
[2021-04-18 17:54] LABS: PLATELET ESTIMATE NORMAL
[2021-04-18] MEDS: IPRATROPIUM/ALBUTEROL 0.5-3(2.5)MG/3ML NEB HHN SCH (21:31)
[2021-04-19] VITALS (96 sets, daily range): BP systolic 101–160; BP diastolic 56–107
[2021-04-19] MEDS: SODIUM CHLORIDE 3% FOR INH 4ML UD NEB INH SCH ×4 (00:18→20:20)
[2021-04-19] MEDS: IPRATROPIUM/ALBUTEROL 0.5-3(2.5)MG/3ML NEB HHN SCH ×6 (02:05→20:19)
[2021-04-19] MEDS: FENTANYL CITRATE/PF 2,500 MCG in SODIUM CHLORIDE 0.9% 200 ML IV PRN ×3 (02:14→16:10)
[2021-04-19 05:56] LABS: CHLORIDE 110 mEq/L (98-107); HEMATOCRIT. 35.2 % (42.0-52.0); HEMOGLOBIN. 11.9 g/dL (14.0-18.0); MEAN CORPUSCULAR VOLUME 91.5 fL (80.0-94.0); MEAN PLATELET VOLUME 8.5 fl (7.4-10.4); PLATELET 260 x1000/uL (130-400); RED BLOOD CELL COUNT 3.85 mill/uL (4.7-6.1); RED CELL DISTRIBUTION WIDTH 14.8 % (11.6-14.6)
[2021-04-19] MEDS: DEXT 5%/0.45% NACL 1000ML 1,000 ML IV SCH ×2 (06:12→21:49)
[2021-04-19] MEDS: ZINC SULFATE 220 MG ( 50 ) CAPSULE PO SCH (08:29)
[2021-04-19] MEDS: DEXAMETHASONE 10 MG/ML VIAL IV SCH (08:29)
[2021-04-19] MEDS: ASPIRIN 81MG TABLET PO SCH (08:29)
[2021-04-19] MEDS: CHOLECALCIFEROL (D3) 1000 UNIT TABLET PO SCH (08:29)
[2021-04-19] MEDS: ASCORBIC ACID 500 MG TABLET PO SCH ×2 (08:30→21:49)
[2021-04-19] MEDS: PANTOPRAZOLE SODIUM 40 MG/VIAL IV SCH (08:30)
[2021-04-19] MEDS: ENOXAPARIN 40MG/0.4ML SYR SUBCUT SCH ×2 (08:30→21:49)
[2021-04-19] MEDS: MIDAZOLAM HCL 100 MG in SODIUM CHLORIDE 0.9% 100 ML IV PRN ×2 (09:19→21:53)
[2021-04-19] MEDS ORDERED: ATROPINE SULFATE 1MG/10ML SYR IV PRN (10:00)
[2021-04-19 10:29] LABS: BG BASE EXCESS 4.3 mmol/L (-2.0-2.0); BG CARBOXYHEMOGLOBIN 0.8 % (0.5-1.5); BG DEOXYHEMOGLOBIN 22.4 % (0.0-5.0); BG FRACTION INSPIRED OXYGEN 100; BG HCO3 ACT 32.1 mmol/L (22.0-26.0); BG METHEMOGLOBIN 0.7 % (0.0-1.5); BG OXYGEN SATURATION 77.3 % (92.0-98.5); BG OXYHEMOGLOBIN 76.1 % (94.0-97.0); BG PCO2 62.9 mmHg (35.0-45.0); BG PH 7.326 (7.350-7.450); BG PO2 43.2 mmHg (75.0-100.0); BG SAMPLE SITE RIGHT RADIAL; BG TOTAL HEMOGLOBIN 13.6 g/dL (12.0-18.0); BG VENT MODE VENT - PRVC
[2021-04-19 16:14] LABS: PLATELET ESTIMATE NORMAL
[2021-04-19] MEDS ORDERED: MIDAZOLAM HCL 100 MG in SODIUM CHLORIDE 0.9% 80 ML IV PRN (16:15)
[2021-04-19] MEDS ORDERED: FENTANYL CITRATE/PF 2,500 MCG in SODIUM CHLORIDE 0.9% 200 ML IV PRN (16:15)
[2021-04-20] VITALS (69 sets, daily range): BP systolic 101–142; BP diastolic 46–77
[2021-04-20] MEDS: FENTANYL CITRATE/PF 2,500 MCG in SODIUM CHLORIDE 0.9% 200 ML IV PRN ×4 (00:12→22:20)
[2021-04-20] MEDS: IPRATROPIUM/ALBUTEROL 0.5-3(2.5)MG/3ML NEB HHN SCH ×6 (00:19→20:40)
[2021-04-20] MEDS: MIDAZOLAM HCL 100 MG in SODIUM CHLORIDE 0.9% 100 ML IV PRN ×2 (07:51→17:21)
[2021-04-20] MEDS: SODIUM CHLORIDE 3% FOR INH 4ML UD NEB INH SCH ×3 (08:22→20:39)
[2021-04-20 08:50] LABS: BG BASE EXCESS 4.6 mmol/L (-2.0-2.0); BG CARBOXYHEMOGLOBIN 1.3 % (0.5-1.5); BG DEOXYHEMOGLOBIN 9.7 % (0.0-5.0); BG FRACTION INSPIRED OXYGEN 100; BG METHEMOGLOBIN 0.5 % (0.0-1.5); BG OXYGEN SATURATION 90.1 % (92.0-98.5); BG OXYHEMOGLOBIN 88.5 % (94.0-97.0); BG PCO2 53.9 mmHg (35.0-45.0); BG PH 7.377 (7.350-7.450); BG PO2 57.4 mmHg (75.0-100.0); BG SAMPLE SITE RIGHT RADIAL; BG TOTAL HEMOGLOBIN 12.8 g/dL (12.0-18.0); BG VENT MODE AC/PRVC
[2021-04-20] MEDS: PANTOPRAZOLE SODIUM 40 MG/VIAL IV SCH (09:22)
[2021-04-20] MEDS: ASCORBIC ACID 500 MG TABLET PO SCH ×2 (09:23→20:52)
[2021-04-20] MEDS: DEXAMETHASONE 10 MG/ML VIAL IV SCH (09:23)
[2021-04-20] MEDS: ENOXAPARIN 40MG/0.4ML SYR SUBCUT SCH ×2 (09:23→20:52)
[2021-04-20] MEDS: CHOLECALCIFEROL (D3) 1000 UNIT TABLET PO SCH (09:23)
[2021-04-20] MEDS: ZINC SULFATE 220 MG ( 50 ) CAPSULE PO SCH (09:23)
[2021-04-20] MEDS: ASPIRIN 81MG TABLET PO SCH (09:23)
[2021-04-20 10:52] LABS: HEMATOCRIT. 39.1 % (42.0-52.0); HEMOGLOBIN. 12.6 g/dL (14.0-18.0); MEAN CORPUSCULAR HEMOGLOBIN 30.2 pg (28.0-32.0); MEAN CORPUSCULAR VOLUME 93.5 fL (80.0-94.0); MEAN PLATELET VOLUME 8.9 fl (7.4-10.4); PLATELET 244 x1000/uL (130-400); RED BLOOD CELL COUNT 4.18 mill/uL (4.7-6.1); RED CELL DISTRIBUTION WIDTH 14.8 % (11.6-14.6)
[2021-04-20 11:00] LABS: CHLORIDE 106 mEq/L (98-107)
[2021-04-20 12:17] LABS: PLATELET ESTIMATE NORMAL
[2021-04-20] MEDS: DEXT 5%/0.45% NACL 1000ML 1,000 ML IV SCH (12:28)
[2021-04-21] VITALS (77 sets, daily range): BP systolic 116–176; BP diastolic 42–84
[2021-04-21] MEDS: IPRATROPIUM/ALBUTEROL 0.5-3(2.5)MG/3ML NEB HHN SCH ×7 (00:24→23:37)
[2021-04-21] MEDS: MIDAZOLAM HCL 100 MG in SODIUM CHLORIDE 0.9% 100 ML IV PRN ×4 (00:44→23:30)
[2021-04-21] MEDS: DEXT 5%/0.45% NACL 1000ML 1,000 ML IV SCH ×2 (03:17→17:42)
[2021-04-21] MEDS: FENTANYL CITRATE/PF 2,500 MCG in SODIUM CHLORIDE 0.9% 200 ML IV PRN ×3 (05:38→20:04)
[2021-04-21] MEDS: DEXAMETHASONE 10 MG/ML VIAL IV SCH (08:12)
[2021-04-21] MEDS: ASPIRIN 81MG TABLET PO SCH (08:12)
[2021-04-21] MEDS: CHOLECALCIFEROL (D3) 1000 UNIT TABLET PO SCH (08:12)
[2021-04-21] MEDS: ZINC SULFATE 220 MG ( 50 ) CAPSULE PO SCH (08:12)
[2021-04-21] MEDS: ASCORBIC ACID 500 MG TABLET PO SCH ×2 (08:12→20:04)
[2021-04-21] MEDS: PANTOPRAZOLE SODIUM 40 MG/VIAL IV SCH (08:12)
[2021-04-21] MEDS: ENOXAPARIN 40MG/0.4ML SYR SUBCUT SCH ×2 (08:12→20:04)
[2021-04-21 08:16] LABS: BG BASE EXCESS 4.3 mmol/L (-2.0-2.0); BG CARBOXYHEMOGLOBIN 1.7 % (0.5-1.5); BG DEOXYHEMOGLOBIN 10.5 % (0.0-5.0); BG FRACTION INSPIRED OXYGEN 100; BG HCO3 ACT 30.7 mmol/L (22.0-26.0); BG METHEMOGLOBIN 0.5 % (0.0-1.5); BG OXYGEN SATURATION 89.3 % (92.0-98.5); BG OXYHEMOGLOBIN 87.3 % (94.0-97.0); BG PCO2 53.8 mmHg (35.0-45.0); BG PH 7.374 (7.350-7.450); BG PO2 56.5 mmHg (75.0-100.0); BG SAMPLE SITE RIGHT RADIAL; BG TOTAL HEMOGLOBIN 12.8 g/dL (12.0-18.0); BG VENT MODE PRVC-AC
[2021-04-21 08:17] LABS: CLARITY URINE CLOUDY (CLEAR); COLOR URINE DARK YELLOW (YELLOW); KETONES URINE NEGATIVE (NEGATIVE); LEUKOCYTE ESTERASE URINE 1+ (NEGATIVE); NITRITE URINE NEGATIVE (NEGATIVE); OCCULT BLOOD URINE 3+ (NEGATIVE); PH URINE 5.5 (4.5-8.0); PROTEIN URINE TRACE (NEGATIVE); SPECIFIC GRAVITY URINE 1.031 (1.005-1.030)
[2021-04-21] MEDS: DOCUSATE SODIUM SUGAR FREE 100MG/10ML UDC NG PRN (11:59)
[2021-04-21] MEDS: FLUCONAZOLE 200 MG/100ML BAG 100 ML IV SCH (12:18)
[2021-04-21 12:41] LABS: HEMATOCRIT. 34.5 % (42.0-52.0); HEMOGLOBIN. 11.5 g/dL (14.0-18.0); MEAN CORPUSCULAR HEMOGLOBIN 31.1 pg (28.0-32.0); MEAN CORPUSCULAR VOLUME 92.9 fL (80.0-94.0); MEAN PLATELET VOLUME 9.3 fl (7.4-10.4); PLATELET 209 x1000/uL (130-400); RED BLOOD CELL COUNT 3.71 mill/uL (4.7-6.1); RED CELL DISTRIBUTION WIDTH 15.1 % (11.6-14.6)
[2021-04-21 12:45] LABS: CHLORIDE 104 mEq/L (98-107)
[2021-04-21 13:49] LABS: PLATELET ESTIMATE NORMAL
[2021-04-21] MEDS: ACETAMINOPHEN 325MG TABLET PO PRN (15:09)
[2021-04-22] VITALS (49 sets, daily range): BP systolic 108–167; BP diastolic 64–90
[2021-04-22] MEDS: FENTANYL CITRATE/PF 2,500 MCG in SODIUM CHLORIDE 0.9% 200 ML IV PRN ×3 (02:58→17:21)
[2021-04-22] MEDS: IPRATROPIUM/ALBUTEROL 0.5-3(2.5)MG/3ML NEB HHN SCH ×5 (04:05→20:35)
[2021-04-22] MEDS: MIDAZOLAM HCL 100 MG in SODIUM CHLORIDE 0.9% 100 ML IV PRN ×3 (05:29→19:52)
[2021-04-22 06:56] LABS: CHLORIDE 104 mEq/L (98-107)
[2021-04-22 06:59] LABS: HEMATOCRIT. 33.1 % (42.0-52.0); MEAN CORPUSCULAR HEMOGLOBIN 30.6 pg (28.0-32.0); MEAN CORPUSCULAR VOLUME 92.1 fL (80.0-94.0); MEAN PLATELET VOLUME 8.7 fl (7.4-10.4); PLATELET 228 x1000/uL (130-400); RED CELL DISTRIBUTION WIDTH 15.2 % (11.6-14.6)
[2021-04-22] MEDS: DOCUSATE SODIUM SUGAR FREE 100MG/10ML UDC NG PRN (08:15)
[2021-04-22] MEDS: ZINC SULFATE 220 MG ( 50 ) CAPSULE PO SCH (08:15)
[2021-04-22] MEDS: CHOLECALCIFEROL (D3) 1000 UNIT TABLET PO SCH (08:16)
[2021-04-22] MEDS: ASCORBIC ACID 500 MG TABLET PO SCH ×2 (08:16→20:55)
[2021-04-22] MEDS: ASPIRIN 81MG TABLET PO SCH (08:16)
[2021-04-22] MEDS: ENOXAPARIN 40MG/0.4ML SYR SUBCUT SCH ×2 (08:16→20:55)
[2021-04-22] MEDS: DEXAMETHASONE 10 MG/ML VIAL IV SCH (08:16)
[2021-04-22] MEDS: PANTOPRAZOLE SODIUM 40 MG/VIAL IV SCH (08:16)
[2021-04-22 08:41] LABS: BG BASE EXCESS 4.6 mmol/L (-2.0-2.0); BG CARBOXYHEMOGLOBIN 1.5 % (0.5-1.5); BG DEOXYHEMOGLOBIN 10.1 % (0.0-5.0); BG FRACTION INSPIRED OXYGEN 80; BG HCO3 ACT 30.9 mmol/L (22.0-26.0); BG METHEMOGLOBIN 0.4 % (0.0-1.5); BG OXYGEN SATURATION 89.7 % (92.0-98.5); BG PH 7.376 (7.350-7.450); BG PO2 56.7 mmHg (75.0-100.0); BG SAMPLE SITE LEFT RADIAL; BG TOTAL HEMOGLOBIN 12.1 g/dL (12.0-18.0); BG TOTAL RESPIRATORY RATE 36 b/min; BG VENT MODE VENT- PRVC
[2021-04-22 08:47] LABS: PLATELET ESTIMATE NORMAL
[2021-04-22] MEDS: DEXT 5%/0.45% NACL 1000ML 1,000 ML IV SCH (10:01)
[2021-04-22] MEDS: FLUCONAZOLE 200 MG/100ML BAG 100 ML IV SCH (12:10)
[2021-04-22] MEDS ORDERED: MIDAZOLAM 100MG/100ML PMX 100 ML IV PRN (13:00)
[2021-04-23] VITALS (49 sets, daily range): BP systolic 109–183; BP diastolic 57–95
[2021-04-23] MEDS: IPRATROPIUM/ALBUTEROL 0.5-3(2.5)MG/3ML NEB HHN SCH ×6 (00:24→20:03)
[2021-04-23] MEDS: FENTANYL CITRATE/PF 2,500 MCG in SODIUM CHLORIDE 0.9% 200 ML IV PRN ×4 (00:48→23:20)
[2021-04-23] MEDS: DEXT 5%/0.45% NACL 1000ML 1,000 ML IV SCH ×2 (00:48→17:15)
[2021-04-23] MEDS: MIDAZOLAM HCL 100 MG in SODIUM CHLORIDE 0.9% 100 ML IV PRN ×4 (03:05→23:21)
[2021-04-23 08:15] LABS: BG BASE EXCESS 5.1 mmol/L (-2.0-2.0); BG DEOXYHEMOGLOBIN 8.9 % (0.0-5.0); BG HCO3 ACT 31.9 mmol/L (22.0-26.0); BG METHEMOGLOBIN 0.7 % (0.0-1.5); BG OXYGEN SATURATION 90.9 % (92.0-98.5); BG OXYHEMOGLOBIN 89.4 % (94.0-97.0); BG PCO2 57.6 mmHg (35.0-45.0); BG PH 7.361 (7.350-7.450); BG PO2 59.9 mmHg (75.0-100.0); BG SAMPLE SITE RIGHT RADIAL; BG TOTAL HEMOGLOBIN 11.8 g/dL (12.0-18.0); BG VENT MODE VENT- PRVC
[2021-04-23] MEDS: DEXAMETHASONE 10 MG/ML VIAL IV SCH (09:10)
[2021-04-23] MEDS: PANTOPRAZOLE SODIUM 40 MG/VIAL IV SCH (09:10)
[2021-04-23] MEDS: ASCORBIC ACID 500 MG TABLET PO SCH ×2 (09:11→22:26)
[2021-04-23] MEDS: ENOXAPARIN 40MG/0.4ML SYR SUBCUT SCH ×2 (09:11→22:25)
[2021-04-23] MEDS: ASPIRIN 81MG TABLET PO SCH (09:11)
[2021-04-23] MEDS: CHOLECALCIFEROL (D3) 1000 UNIT TABLET PO SCH (09:11)
[2021-04-23] MEDS: ZINC SULFATE 220 MG ( 50 ) CAPSULE PO SCH (09:11)
[2021-04-23] MEDS: FLUCONAZOLE 200 MG/100ML BAG 100 ML IV SCH (12:19)
[2021-04-23] MEDS: PROPOFOL 10MG/ML 100ML 100 ML IV PRN (14:44)
[2021-04-23] MEDS: ACETYLCYSTEINE 100MG/ML 10% VIAL 4ML INH SCH (16:12)
[2021-04-24] VITALS (49 sets, daily range): BP systolic 123–159; BP diastolic 65–93
[2021-04-24] MEDS: IPRATROPIUM/ALBUTEROL 0.5-3(2.5)MG/3ML NEB HHN SCH ×6 (00:19→20:33)
[2021-04-24] MEDS: ACETYLCYSTEINE 100MG/ML 10% VIAL 4ML INH SCH ×2 (00:19→08:47)
[2021-04-24] MEDS: PROPOFOL 10MG/ML 100ML 100 ML IV PRN ×3 (00:47→20:41)
[2021-04-24] MEDS: FENTANYL CITRATE/PF 2,500 MCG in SODIUM CHLORIDE 0.9% 200 ML IV PRN ×3 (06:28→20:33)
[2021-04-24] MEDS: MIDAZOLAM HCL 100 MG in SODIUM CHLORIDE 0.9% 100 ML IV PRN ×3 (06:29→20:34)
[2021-04-24 07:20] LABS: HEMATOCRIT. 34.3 % (42.0-52.0); MEAN CORPUSCULAR HEMOGLOBIN 30.1 pg (28.0-32.0); MEAN CORPUSCULAR VOLUME 93.7 fL (80.0-94.0); MEAN PLATELET VOLUME 9.7 fl (7.4-10.4); PLATELET 261 x1000/uL (130-400); RED BLOOD CELL COUNT 3.66 mill/uL (4.7-6.1); RED CELL DISTRIBUTION WIDTH 15.8 % (11.6-14.6)
[2021-04-24 07:40] LABS: CHLORIDE 102 mEq/L (98-107)
[2021-04-24] MEDS: DEXT 5%/0.45% NACL 1000ML 1,000 ML IV SCH ×2 (08:13→23:37)
[2021-04-24 08:36] LABS: BG BASE EXCESS 7.6 mmol/L (-2.0-2.0); BG CARBOXYHEMOGLOBIN 0.7 % (0.5-1.5); BG DEOXYHEMOGLOBIN 3.9 % (0.0-5.0); BG FRACTION INSPIRED OXYGEN 100; BG HCO3 ACT 33.7 mmol/L (22.0-26.0); BG METHEMOGLOBIN 0.4 % (0.0-1.5); BG OXYGEN SATURATION 96.1 % (92.0-98.5); BG PCO2 54.8 mmHg (35.0-45.0); BG PH 7.407 (7.350-7.450); BG PO2 81.4 mmHg (75.0-100.0); BG SAMPLE SITE RIGHT RADIAL; BG TOTAL HEMOGLOBIN 11.8 g/dL (12.0-18.0); BG TOTAL RESPIRATORY RATE 40 b/min; BG VENT MODE VENT - AC
[2021-04-24] MEDS: ASPIRIN 81MG TABLET PO SCH (08:44)
[2021-04-24] MEDS: ZINC SULFATE 220 MG ( 50 ) CAPSULE PO SCH (08:44)
[2021-04-24] MEDS: ASCORBIC ACID 500 MG TABLET PO SCH ×2 (08:44→20:43)
[2021-04-24] MEDS: PANTOPRAZOLE SODIUM 40 MG/VIAL IV SCH (08:44)
[2021-04-24] MEDS: ENOXAPARIN 40MG/0.4ML SYR SUBCUT SCH ×2 (08:45→20:43)
[2021-04-24] MEDS: DEXAMETHASONE 10 MG/ML VIAL IV SCH (08:45)
[2021-04-24] MEDS: CHOLECALCIFEROL (D3) 1000 UNIT TABLET PO SCH (08:45)
[2021-04-24] MEDS: ALBUTEROL (0.083%) 2.5MG/3ML NEB HHN PRN ×2 (08:47→14:11)
[2021-04-24] MEDS: FLUCONAZOLE 200 MG/100ML BAG 100 ML IV SCH (11:57)
[2021-04-24 17:28] LABS: PLATELET ESTIMATE NORMAL
[2021-04-25] VITALS (60 sets, daily range): BP systolic 123–174; BP diastolic 55–98
[2021-04-25] MEDS: IPRATROPIUM/ALBUTEROL 0.5-3(2.5)MG/3ML NEB HHN SCH ×6 (01:14→20:56)
[2021-04-25] MEDS: PROPOFOL 10MG/ML 100ML 100 ML IV PRN ×5 (03:28→21:17)
[2021-04-25] MEDS: FENTANYL CITRATE/PF 2,500 MCG in SODIUM CHLORIDE 0.9% 200 ML IV PRN ×3 (04:14→21:13)
[2021-04-25] MEDS: MIDAZOLAM HCL 100 MG in SODIUM CHLORIDE 0.9% 100 ML IV PRN ×3 (04:15→23:21)
[2021-04-25] MEDS: CHOLECALCIFEROL (D3) 1000 UNIT TABLET PO SCH (09:16)
[2021-04-25] MEDS: ASCORBIC ACID 500 MG TABLET PO SCH ×2 (09:16→21:11)
[2021-04-25] MEDS: ASPIRIN 81MG TABLET PO SCH (09:16)
[2021-04-25] MEDS: ZINC SULFATE 220 MG ( 50 ) CAPSULE PO SCH (09:16)
[2021-04-25] MEDS: DEXAMETHASONE 10 MG/ML VIAL IV SCH (09:16)
[2021-04-25] MEDS: PANTOPRAZOLE SODIUM 40 MG/VIAL IV SCH (09:16)
[2021-04-25] MEDS: ENOXAPARIN 40MG/0.4ML SYR SUBCUT SCH ×2 (09:17→21:11)
[2021-04-25 09:23] LABS: BG BASE EXCESS 8.4 mmol/L (-2.0-2.0); BG CARBOXYHEMOGLOBIN 1.7 % (0.5-1.5); BG DEOXYHEMOGLOBIN 2.9 % (0.0-5.0); BG FRACTION INSPIRED OXYGEN 100; BG METHEMOGLOBIN 0.4 % (0.0-1.5); BG PCO2 58.1 mmHg (35.0-45.0); BG PH 7.398 (7.350-7.450); BG PO2 90.7 mmHg (75.0-100.0); BG SAMPLE SITE LEFT RADIAL; BG TOTAL HEMOGLOBIN 12.6 g/dL (12.0-18.0); BG VENT MODE VENT - AC
[2021-04-25] MEDS: CLONIDINE 0.1MG TABLET PO PRN (11:53)
[2021-04-25] MEDS: FLUCONAZOLE 200 MG/100ML BAG 100 ML IV SCH (11:53)
[2021-04-25] MEDS: DEXT 5%/0.45% NACL 1000ML 1,000 ML IV SCH (15:16)
[2021-04-26] VITALS (50 sets, daily range): BP systolic 121–154; BP diastolic 66–106
[2021-04-26] MEDS: PROPOFOL 10MG/ML 100ML 100 ML IV PRN ×7 (00:06→19:07)
[2021-04-26] MEDS: IPRATROPIUM/ALBUTEROL 0.5-3(2.5)MG/3ML NEB HHN SCH ×6 (00:39→20:09)
[2021-04-26] MEDS: FENTANYL CITRATE/PF 2,500 MCG in SODIUM CHLORIDE 0.9% 200 ML IV PRN ×3 (04:15→18:50)
[2021-04-26] MEDS: DEXT 5%/0.45% NACL 1000ML 1,000 ML IV SCH ×2 (05:23→20:11)
[2021-04-26] MEDS: MIDAZOLAM HCL 100 MG in SODIUM CHLORIDE 0.9% 100 ML IV PRN ×3 (06:19→20:34)
[2021-04-26] MEDS: ASPIRIN 81MG TABLET PO SCH (08:00)
[2021-04-26] MEDS: ZINC SULFATE 220 MG ( 50 ) CAPSULE PO SCH (08:00)
[2021-04-26] MEDS: DEXAMETHASONE 10 MG/ML VIAL IV SCH (08:00)
[2021-04-26] MEDS: ENOXAPARIN 40MG/0.4ML SYR SUBCUT SCH ×2 (08:00→20:11)
[2021-04-26] MEDS: PANTOPRAZOLE SODIUM 40 MG/VIAL IV SCH (08:00)
[2021-04-26] MEDS: CHOLECALCIFEROL (D3) 1000 UNIT TABLET PO SCH (08:00)
[2021-04-26 09:16] LABS: BG BASE EXCESS 9.8 mmol/L (-2.0-2.0); BG CARBOXYHEMOGLOBIN 0.8 % (0.5-1.5); BG DEOXYHEMOGLOBIN 3.9 % (0.0-5.0); BG FRACTION INSPIRED OXYGEN 100; BG HCO3 ACT 36.3 mmol/L (22.0-26.0); BG METHEMOGLOBIN 0.5 % (0.0-1.5); BG OXYHEMOGLOBIN 94.8 % (94.0-97.0); BG PCO2 57.6 mmHg (35.0-45.0); BG PH 7.417 (7.350-7.450); BG PO2 86.8 mmHg (75.0-100.0); BG SAMPLE SITE RIGHT RADIAL; BG TOTAL HEMOGLOBIN 12.6 g/dL (12.0-18.0); BG VENT MODE VENT - PRVC
[2021-04-26] MEDS: FLUCONAZOLE 200 MG/100ML BAG 100 ML IV SCH (13:26)
[2021-04-26] MEDS ORDERED: MIDAZOLAM 100MG/100ML PMX 100 ML IV PRN (17:15)
[2021-04-27] VITALS (46 sets, daily range): BP systolic 113–154; BP diastolic 67–90
[2021-04-27] MEDS: IPRATROPIUM/ALBUTEROL 0.5-3(2.5)MG/3ML NEB HHN SCH ×6 (00:21→20:55)
[2021-04-27] MEDS: PROPOFOL 10MG/ML 100ML 100 ML IV PRN ×3 (00:36→11:41)
[2021-04-27] MEDS: MIDAZOLAM HCL 100 MG in SODIUM CHLORIDE 0.9% 100 ML IV PRN ×4 (02:20→22:57)
[2021-04-27] MEDS: FENTANYL CITRATE/PF 2,500 MCG in SODIUM CHLORIDE 0.9% 200 ML IV PRN ×4 (02:32→22:57)
[2021-04-27 06:16] LABS: HEMATOCRIT 33.3 % (42.0-52.0); HEMOGLOBIN 10.9 g/dL (14.0-18.0); MEAN CORPUSCULAR HEMOGLOBIN 30.3 pg (28.0-32.0); MEAN CORPUSCULAR VOLUME 92.3 fL (80.0-94.0); PLATELET 290 x1000/uL (130-400); RED CELL DISTRIBUTION WIDTH 15.4 % (11.6-14.6)
[2021-04-27 06:21] LABS: CHLORIDE 103 mEq/L (98-107)
[2021-04-27 08:42] LABS: BG BASE EXCESS 7.7 mmol/L (-2.0-2.0); BG CARBOXYHEMOGLOBIN 0.9 % (0.5-1.5); BG DEOXYHEMOGLOBIN 4.2 % (0.0-5.0); BG FRACTION INSPIRED OXYGEN 100; BG HCO3 ACT 33.7 mmol/L (22.0-26.0); BG METHEMOGLOBIN 0.5 % (0.0-1.5); BG OXYGEN SATURATION 95.7 % (92.0-98.5); BG OXYHEMOGLOBIN 94.4 % (94.0-97.0); BG PCO2 53.4 mmHg (35.0-45.0); BG PH 7.418 (7.350-7.450); BG PO2 78.9 mmHg (75.0-100.0); BG SAMPLE SITE RIGHT RADIAL; BG TOTAL HEMOGLOBIN 12.4 g/dL (12.0-18.0); BG VENT MODE VENT - PRVC
[2021-04-27] MEDS: PANTOPRAZOLE SODIUM 40 MG/VIAL IV SCH (09:07)
[2021-04-27] MEDS: DEXAMETHASONE 10 MG/ML VIAL IV SCH (09:07)
[2021-04-27] MEDS: ASPIRIN 81MG TABLET PO SCH (09:07)
[2021-04-27] MEDS: ENOXAPARIN 40MG/0.4ML SYR SUBCUT SCH (09:07)
[2021-04-27] MEDS: DEXT 5%/0.45% NACL 1000ML 1,000 ML IV SCH (11:27)
[2021-04-27] MEDS: FLUCONAZOLE 200 MG/100ML BAG 100 ML IV SCH (12:39)
[2021-04-28] VITALS (46 sets, daily range): BP systolic 118–168; BP diastolic 63–95
[2021-04-28] MEDS: IPRATROPIUM/ALBUTEROL 0.5-3(2.5)MG/3ML NEB HHN SCH ×6 (01:30→21:07)
[2021-04-28] MEDS: DEXT 5%/0.45% NACL 1000ML 1,000 ML IV SCH ×2 (03:52→20:00)
[2021-04-28 06:32] LABS: HEMATOCRIT. 34.6 % (42.0-52.0); MEAN CORPUSCULAR HEMOGLOBIN 29.6 pg (28.0-32.0); MEAN CORPUSCULAR VOLUME 93.2 fL (80.0-94.0); MEAN PLATELET VOLUME 9.2 fl (7.4-10.4); PLATELET 290 x1000/uL (130-400); RED BLOOD CELL COUNT 3.71 mill/uL (4.7-6.1); RED CELL DISTRIBUTION WIDTH 15.8 % (11.6-14.6)
[2021-04-28 06:43] LABS: CHLORIDE 100 mEq/L (98-107)
[2021-04-28] MEDS: FENTANYL CITRATE/PF 2,500 MCG in SODIUM CHLORIDE 0.9% 200 ML IV PRN ×3 (06:57→23:13)
[2021-04-28] MEDS: ASPIRIN 81MG TABLET PO SCH (08:18)
[2021-04-28] MEDS: PANTOPRAZOLE SODIUM 40 MG/VIAL IV SCH (08:18)
[2021-04-28] MEDS: DEXAMETHASONE 10 MG/ML VIAL IV SCH (08:18)
[2021-04-28 08:36] LABS: BG BASE EXCESS 7.6 mmol/L (-2.0-2.0); BG CARBOXYHEMOGLOBIN 1.7 % (0.5-1.5); BG FRACTION INSPIRED OXYGEN 100; BG HCO3 ACT 34.3 mmol/L (22.0-26.0); BG METHEMOGLOBIN 0.1 % (0.0-1.5); BG OXYGEN SATURATION 90.8 % (92.0-98.5); BG OXYHEMOGLOBIN 89.2 % (94.0-97.0); BG PCO2 59.1 mmHg (35.0-45.0); BG PH 7.382 (7.350-7.450); BG PO2 61.5 mmHg (75.0-100.0); BG VENT MODE VENT- PRVC
[2021-04-28] MEDS: MIDAZOLAM HCL 100 MG in SODIUM CHLORIDE 0.9% 100 ML IV PRN ×2 (10:15→21:27)
[2021-04-28 10:38] LABS: PLATELET ESTIMATE NORMAL
[2021-04-28] MEDS: FLUCONAZOLE 200 MG/100ML BAG 100 ML IV SCH (12:21)
[2021-04-28] MEDS: ENOXAPARIN 40MG/0.4ML SYR SUBCUT SCH (21:06)
[2021-04-29] VITALS (45 sets, daily range): BP systolic 93–162; BP diastolic 58–97
[2021-04-29] MEDS: IPRATROPIUM/ALBUTEROL 0.5-3(2.5)MG/3ML NEB HHN SCH ×6 (00:36→21:17)
[2021-04-29] MEDS: MIDAZOLAM HCL 100 MG in SODIUM CHLORIDE 0.9% 100 ML IV PRN ×2 (09:12→17:15)
[2021-04-29] MEDS: ENOXAPARIN 40MG/0.4ML SYR SUBCUT SCH ×2 (09:30→21:19)
[2021-04-29] MEDS: ASPIRIN 81MG TABLET PO SCH (09:30)
[2021-04-29] MEDS: PANTOPRAZOLE SODIUM 40 MG/VIAL IV SCH (09:30)
[2021-04-29] MEDS: DEXAMETHASONE 10 MG/ML VIAL IV SCH (09:30)
[2021-04-29 09:44] LABS: BG BASE EXCESS 7.8 mmol/L (-2.0-2.0); BG CARBOXYHEMOGLOBIN 1.7 % (0.5-1.5); BG FRACTION INSPIRED OXYGEN 100; BG HCO3 ACT 32.9 mmol/L (22.0-26.0); BG METHEMOGLOBIN 0.1 % (0.0-1.5); BG OXYGEN SATURATION 92.9 % (92.0-98.5); BG OXYHEMOGLOBIN 91.2 % (94.0-97.0); BG PCO2 48.7 mmHg (35.0-45.0); BG PH 7.448 (7.350-7.450); BG PO2 62.8 mmHg (75.0-100.0); BG SAMPLE SITE LEFT RADIAL; BG TOTAL HEMOGLOBIN 11.9 g/dL (12.0-18.0); BG VENT MODE VENT - PRVC
[2021-04-29] MEDS: PROPOFOL 10MG/ML 100ML 100 ML IV PRN ×6 (10:56→22:49)
[2021-04-29] MEDS: FLUCONAZOLE 200 MG/100ML BAG 100 ML IV SCH (11:44)
[2021-04-29] MEDS: DEXT 5%/0.45% NACL 1000ML 1,000 ML IV SCH (11:53)
[2021-04-29] MEDS: FENTANYL CITRATE/PF 2,500 MCG in SODIUM CHLORIDE 0.9% 200 ML IV PRN ×2 (13:24→21:51)
[2021-04-29] MEDS: DOPAMINE 400MG/250ML PREMIX 250 ML IV PRN (15:15)
[2021-04-29 15:35] LABS: BG BASE EXCESS 2.7 mmol/L (-2.0-2.0); BG CARBOXYHEMOGLOBIN 1.9 % (0.5-1.5); BG FRACTION INSPIRED OXYGEN 100; BG HCO3 ACT 31.4 mmol/L (22.0-26.0); BG OXYGEN SATURATION 58.2 % (92.0-98.5); BG OXYHEMOGLOBIN 57.1 % (94.0-97.0); BG PCO2 69.3 mmHg (35.0-45.0); BG PH 7.274 (7.350-7.450); BG PO2 34.3 mmHg (75.0-100.0); BG SAMPLE SITE RIGHT RADIAL; BG TOTAL HEMOGLOBIN 13.1 g/dL (12.0-18.0); BG VENT MODE VENT - AC PRVC
[2021-04-29 18:21] LABS: BG BASE EXCESS 3.1 mmol/L (-2.0-2.0); BG CARBOXYHEMOGLOBIN 1.9 % (0.5-1.5); BG DEOXYHEMOGLOBIN 37.8 % (0.0-5.0); BG FRACTION INSPIRED OXYGEN 100; BG HCO3 ACT 32.5 mmol/L (22.0-26.0); BG METHEMOGLOBIN 0.4 % (0.0-1.5); BG OXYGEN SATURATION 61.3 % (92.0-98.5); BG OXYHEMOGLOBIN 59.9 % (94.0-97.0); BG PCO2 75.8 mmHg (35.0-45.0); BG SAMPLE SITE RIGHT RADIAL; BG TOTAL HEMOGLOBIN 12.7 g/dL (12.0-18.0); BG VENT MODE VENT - AC PRVC
[2021-04-29] MEDS ORDERED: SODIUM BICARBONATE 8.4% 1 MEQ/ML 50ML SYR IV NR (22:00)
[2021-04-29] MEDS ORDERED: SODIUM BICARBONATE 8.4% 1 MEQ/ML 50ML SYR IV ONE (22:20)
[2021-04-29 23:38] LABS: BG BASE EXCESS 4.7 mmol/L (-2.0-2.0); BG CARBOXYHEMOGLOBIN 1.8 % (0.5-1.5); BG DEOXYHEMOGLOBIN 24.1 % (0.0-5.0); BG FRACTION INSPIRED OXYGEN 100; BG HCO3 ACT 31.9 mmol/L (22.0-26.0); BG METHEMOGLOBIN 0.4 % (0.0-1.5); BG OXYGEN SATURATION 75.4 % (92.0-98.5); BG OXYHEMOGLOBIN 73.7 % (94.0-97.0); BG PCO2 59.6 mmHg (35.0-45.0); BG PH 7.346 (7.350-7.450); BG PO2 39.4 mmHg (75.0-100.0); BG SAMPLE SITE LEFT RADIAL; BG TOTAL HEMOGLOBIN 12.5 g/dL (12.0-18.0); BG VENT MODE PRVC/AC
[2021-04-30] VITALS (65 sets, daily range): BP systolic 93–140; BP diastolic 56–81
[2021-04-30] MEDS: PROPOFOL 10MG/ML 100ML 100 ML IV PRN ×9 (01:05→23:19)
[2021-04-30] MEDS: DOPAMINE 400MG/250ML PREMIX 250 ML IV PRN (01:25)
[2021-04-30] MEDS: IPRATROPIUM/ALBUTEROL 0.5-3(2.5)MG/3ML NEB HHN SCH ×6 (01:43→20:10)
[2021-04-30] MEDS: MIDAZOLAM HCL 100 MG in SODIUM CHLORIDE 0.9% 100 ML IV PRN ×2 (01:48→15:05)
[2021-04-30] MEDS: DEXT 5%/0.45% NACL 1000ML 1,000 ML IV SCH ×2 (03:30→18:15)
[2021-04-30 09:47] LABS: BG BASE EXCESS 6.2 mmol/L (-2.0-2.0); BG CARBOXYHEMOGLOBIN 1.4 % (0.5-1.5); BG FRACTION INSPIRED OXYGEN 100; BG HCO3 ACT 32.4 mmol/L (22.0-26.0); BG METHEMOGLOBIN 0.5 % (0.0-1.5); BG OXYGEN SATURATION 92.9 % (92.0-98.5); BG OXYHEMOGLOBIN 91.1 % (94.0-97.0); BG PCO2 54.7 mmHg (35.0-45.0); BG PH 7.391 (7.350-7.450); BG PO2 64.3 mmHg (75.0-100.0); BG SAMPLE SITE RIGHT RADIAL; BG TOTAL HEMOGLOBIN 11.8 g/dL (12.0-18.0); BG VENT MODE VENT - PRVC
[2021-04-30] MEDS: PANTOPRAZOLE SODIUM 40 MG/VIAL IV SCH (10:52)
[2021-04-30] MEDS: ENOXAPARIN 40MG/0.4ML SYR SUBCUT SCH ×2 (10:52→21:05)
[2021-04-30] MEDS: DEXAMETHASONE 10 MG/ML VIAL IV SCH (10:53)
[2021-04-30] MEDS: ASPIRIN 81MG TABLET PO SCH (10:53)
[2021-04-30] MEDS: FLUCONAZOLE 200 MG/100ML BAG 100 ML IV SCH (11:02)
[2021-04-30] MEDS: FENTANYL CITRATE/PF 2,500 MCG in SODIUM CHLORIDE 0.9% 200 ML IV PRN ×2 (15:05→21:18)
[2021-05-01] VITALS (84 sets, daily range): BP systolic 110–149; BP diastolic 52–90
[2021-05-01] MEDS: IPRATROPIUM/ALBUTEROL 0.5-3(2.5)MG/3ML NEB HHN SCH ×7 (00:08→23:39)
[2021-05-01] MEDS: PROPOFOL 10MG/ML 100ML 100 ML IV PRN ×10 (01:48→23:06)
[2021-05-01] MEDS: MIDAZOLAM HCL 100 MG in SODIUM CHLORIDE 0.9% 100 ML IV PRN ×2 (03:04→14:15)
[2021-05-01] MEDS: FENTANYL CITRATE/PF 2,500 MCG in SODIUM CHLORIDE 0.9% 200 ML IV PRN ×3 (04:41→19:21)
[2021-05-01] MEDS: PANTOPRAZOLE SODIUM 40 MG/VIAL IV SCH (08:17)
[2021-05-01] MEDS: DEXAMETHASONE 10 MG/ML VIAL IV SCH (08:17)
[2021-05-01] MEDS: ASPIRIN 81MG TABLET PO SCH (08:17)
[2021-05-01 08:31] LABS: BG BASE EXCESS 8.7 mmol/L (-2.0-2.0); BG CARBOXYHEMOGLOBIN 0.2 % (0.5-1.5); BG DEOXYHEMOGLOBIN 2.7 % (0.0-5.0); BG FRACTION INSPIRED OXYGEN 100; BG HCO3 ACT 34.2 mmol/L (22.0-26.0); BG METHEMOGLOBIN 0.6 % (0.0-1.5); BG OXYGEN SATURATION 97.3 % (92.0-98.5); BG OXYHEMOGLOBIN 96.5 % (94.0-97.0); BG PCO2 51.7 mmHg (35.0-45.0); BG PH 7.438 (7.350-7.450); BG SAMPLE SITE LEFT RADIAL; BG TOTAL HEMOGLOBIN 10.7 g/dL (12.0-18.0); BG VENT MODE VENT- PRVC
[2021-05-01] MEDS: DEXT 5%/0.45% NACL 1000ML 1,000 ML IV SCH (09:24)
[2021-05-01] MEDS: FLUCONAZOLE 200 MG/100ML BAG 100 ML IV SCH (11:42)
[2021-05-01] MEDS: LACTULOSE 20G/30ML UDC PO PRN ×2 (11:43→20:11)
[2021-05-01] MEDS: BISACODYL 5MG TABLET PO PRN ×2 (14:20→20:11)
[2021-05-01] MEDS ORDERED: NA PHOS,M-B/NA PHOS,DI-BA ENEMA 118ML PR PRN (17:00)
[2021-05-01] MEDS: DOCUSATE SODIUM SUGAR FREE 100MG/10ML UDC NG PRN (20:11)
[2021-05-02] VITALS (64 sets, daily range): BP systolic 113–177; BP diastolic 60–115
[2021-05-02] MEDS: DEXT 5%/0.45% NACL 1000ML 1,000 ML IV SCH ×2 (00:46→18:38)
[2021-05-02] MEDS: MIDAZOLAM HCL 100 MG in SODIUM CHLORIDE 0.9% 80 ML IV PRN ×3 (00:57→23:46)
[2021-05-02] MEDS: PROPOFOL 10MG/ML 100ML 100 ML IV PRN ×8 (02:36→22:07)
[2021-05-02] MEDS: FENTANYL CITRATE/PF 2,500 MCG in SODIUM CHLORIDE 0.9% 200 ML IV PRN ×3 (02:44→18:39)
[2021-05-02] MEDS: IPRATROPIUM/ALBUTEROL 0.5-3(2.5)MG/3ML NEB HHN SCH ×5 (04:21→21:03)
[2021-05-02 07:12] LABS: HEMATOCRIT. 32.2 % (42.0-52.0); HEMOGLOBIN. 10.6 g/dL (14.0-18.0); MEAN CORPUSCULAR HEMOGLOBIN 30.5 pg (28.0-32.0); MEAN CORPUSCULAR VOLUME 92.3 fL (80.0-94.0); MEAN PLATELET VOLUME 8.3 fl (7.4-10.4); PLATELET 353 x1000/uL (130-400); RED BLOOD CELL COUNT 3.49 mill/uL (4.7-6.1); RED CELL DISTRIBUTION WIDTH 15.7 % (11.6-14.6)
[2021-05-02 07:19] LABS: CHLORIDE 100 mEq/L (98-107)
[2021-05-02 09:13] LABS: BG BASE EXCESS 5.6 mmol/L (-2.0-2.0); BG DEOXYHEMOGLOBIN 7.1 % (0.0-5.0); BG FRACTION INSPIRED OXYGEN 100; BG METHEMOGLOBIN 0.6 % (0.0-1.5); BG OXYGEN SATURATION 92.8 % (92.0-98.5); BG OXYHEMOGLOBIN 91.3 % (94.0-97.0); BG PH 7.382 (7.350-7.450); BG PO2 65.5 mmHg (75.0-100.0); BG SAMPLE SITE LEFT RADIAL; BG TOTAL HEMOGLOBIN 11.6 g/dL (12.0-18.0); BG TOTAL RESPIRATORY RATE 40 b/min; BG VENT MODE VENT- PRVC
[2021-05-02] MEDS: DEXAMETHASONE 10 MG/ML VIAL IV SCH (09:14)
[2021-05-02] MEDS: PANTOPRAZOLE SODIUM 40 MG/VIAL IV SCH (09:14)
[2021-05-02] MEDS: ASPIRIN 81MG TABLET PO SCH (09:15)
[2021-05-02] MEDS: FLUCONAZOLE 200 MG/100ML BAG 100 ML IV SCH (11:00)
[2021-05-02] MEDS ORDERED: VECURONIUM BROMIDE 10 MG/VIAL IV ONE (13:00)
[2021-05-02] MEDS ORDERED: LIDOCAINE HCL 1% 20ML VIAL (Pyxis) INJ ONE (13:05)
[2021-05-02 16:06] LABS: PLATELET ESTIMATE NORMAL
[2021-05-03] VITALS (83 sets, daily range): BP systolic 103–184; BP diastolic 49–102
[2021-05-03] MEDS: IPRATROPIUM/ALBUTEROL 0.5-3(2.5)MG/3ML NEB HHN SCH ×6 (00:08→20:53)
[2021-05-03] MEDS: PROPOFOL 10MG/ML 100ML 100 ML IV PRN ×3 (01:31→07:24)
[2021-05-03] MEDS: FENTANYL CITRATE/PF 2,500 MCG in SODIUM CHLORIDE 0.9% 200 ML IV PRN ×3 (03:15→19:07)
[2021-05-03] MEDS: DEXAMETHASONE 10 MG/ML VIAL IV SCH (08:21)
[2021-05-03] MEDS: DEXT 5%/0.45% NACL 1000ML 1,000 ML IV SCH ×2 (08:21→23:12)
[2021-05-03] MEDS: ASPIRIN 81MG TABLET PO SCH (08:21)
[2021-05-03] MEDS: PANTOPRAZOLE SODIUM 40 MG/VIAL IV SCH (08:21)
[2021-05-03 10:12] LABS: BG BASE EXCESS 5.2 mmol/L (-2.0-2.0); BG CARBOXYHEMOGLOBIN 1.7 % (0.5-1.5); BG FRACTION INSPIRED OXYGEN 100; BG HCO3 ACT 30.2 mmol/L (22.0-26.0); BG METHEMOGLOBIN 0.3 % (0.0-1.5); BG OXYGEN SATURATION 84.7 % (92.0-98.5); BG PCO2 46.3 mmHg (35.0-45.0); BG PH 7.432 (7.350-7.450); BG PO2 47.9 mmHg (75.0-100.0); BG SAMPLE SITE LEFT RADIAL; BG TOTAL HEMOGLOBIN 10.2 g/dL (12.0-18.0); BG VENT MODE VENT - PRVC
[2021-05-03] MEDS: MIDAZOLAM HCL 100 MG in SODIUM CHLORIDE 0.9% 80 ML IV PRN ×2 (12:38→22:49)
[2021-05-04] VITALS (83 sets, daily range): BP systolic 113–194; BP diastolic 54–94
[2021-05-04] MEDS: IPRATROPIUM/ALBUTEROL 0.5-3(2.5)MG/3ML NEB HHN SCH ×5 (00:31→16:52)
[2021-05-04] MEDS: FENTANYL CITRATE/PF 2,500 MCG in SODIUM CHLORIDE 0.9% 200 ML IV PRN ×4 (02:32→22:40)
[2021-05-04] MEDS: MIDAZOLAM HCL 100 MG in SODIUM CHLORIDE 0.9% 80 ML IV PRN ×3 (05:58→19:57)
[2021-05-04 06:03] LABS: HEMATOCRIT. 30.3 % (42.0-52.0); HEMOGLOBIN. 10.2 g/dL (14.0-18.0); MEAN CORPUSCULAR HEMOGLOBIN 30.7 pg (28.0-32.0); MEAN CORPUSCULAR VOLUME 91.2 fL (80.0-94.0); MEAN PLATELET VOLUME 8.2 fl (7.4-10.4); PLATELET 331 x1000/uL (130-400); RED BLOOD CELL COUNT 3.32 mill/uL (4.7-6.1); RED CELL DISTRIBUTION WIDTH 15.3 % (11.6-14.6)
[2021-05-04 06:12] LABS: CHLORIDE 99 mEq/L (98-107)
[2021-05-04] MEDS: PANTOPRAZOLE SODIUM 40 MG/VIAL IV SCH (08:15)
[2021-05-04] MEDS: DEXAMETHASONE 10 MG/ML VIAL IV SCH (08:16)
[2021-05-04] MEDS: ASPIRIN 81MG TABLET PO SCH (08:16)
[2021-05-04 08:56] LABS: NUCLEATED RED BLOOD CELLS 1 /100 WBC; PLATELET ESTIMATE NORMAL
[2021-05-04 09:07] LABS: BG BASE EXCESS 5.7 mmol/L (-2.0-2.0); BG CARBOXYHEMOGLOBIN 2.1 % (0.5-1.5); BG DEOXYHEMOGLOBIN 15.4 % (0.0-5.0); BG FRACTION INSPIRED OXYGEN 100; BG HCO3 ACT 31.5 mmol/L (22.0-26.0); BG METHEMOGLOBIN 0.4 % (0.0-1.5); BG OXYGEN SATURATION 84.2 % (92.0-98.5); BG OXYHEMOGLOBIN 82.1 % (94.0-97.0); BG PCO2 51.3 mmHg (35.0-45.0); BG PH 7.406 (7.350-7.450); BG PO2 46.9 mmHg (75.0-100.0); BG SAMPLE SITE LEFT RADIAL; BG TOTAL HEMOGLOBIN 11.9 g/dL (12.0-18.0); BG VENT MODE PRVC
[2021-05-04] MEDS: GUAIFENESIN 200MG/10ML SUGAR FREE UDC PO SCH ×2 (12:31→18:14)
[2021-05-04] MEDS: DEXT 5%/0.45% NACL 1000ML 1,000 ML IV SCH (15:19)
[2021-05-04] MEDS: ACETYLCYSTEINE 100MG/ML 10% VIAL 4ML INH SCH (20:23)
[2021-05-04] MEDS: ALBUTEROL (0.083%) 2.5MG/3ML NEB HHN PRN (20:24)
[2021-05-05] VITALS (92 sets, daily range): BP systolic 70–167; BP diastolic 42–98
[2021-05-05] MEDS: GUAIFENESIN 200MG/10ML SUGAR FREE UDC PO SCH ×5 (01:13→23:43)
[2021-05-05] MEDS: MIDAZOLAM HCL 100 MG in SODIUM CHLORIDE 0.9% 80 ML IV PRN ×3 (03:14→16:59)
[2021-05-05] MEDS: ALBUTEROL (0.083%) 2.5MG/3ML NEB HHN PRN (03:23)
[2021-05-05] MEDS: IPRATROPIUM/ALBUTEROL 0.5-3(2.5)MG/3ML NEB HHN SCH ×6 (05:50→21:07)
[2021-05-05] MEDS: FENTANYL CITRATE/PF 2,500 MCG in SODIUM CHLORIDE 0.9% 200 ML IV PRN ×3 (06:04→20:28)
[2021-05-05 06:30] LABS: HEMATOCRIT. 33.6 % (42.0-52.0); HEMOGLOBIN. 11.1 g/dL (14.0-18.0); MEAN CORPUSCULAR HEMOGLOBIN 30.4 pg (28.0-32.0); MEAN PLATELET VOLUME 7.9 fl (7.4-10.4); PLATELET 328 x1000/uL (130-400); RED BLOOD CELL COUNT 3.65 mill/uL (4.7-6.1); RED CELL DISTRIBUTION WIDTH 16.1 % (11.6-14.6)
[2021-05-05 06:37] LABS: CHLORIDE 97 mEq/L (98-107)
[2021-05-05] MEDS: DEXT 5%/0.45% NACL 1000ML 1,000 ML IV SCH ×2 (06:43→21:48)
[2021-05-05] MEDS: PROPOFOL 10MG/ML 100ML 100 ML IV PRN ×10 (06:55→23:45)
[2021-05-05] MEDS ORDERED: VECURONIUM BROMIDE 10 MG/VIAL IV ONE (07:30)
[2021-05-05] MEDS: ACETYLCYSTEINE 100MG/ML 10% VIAL 4ML INH SCH ×2 (07:38→16:40)
[2021-05-05 07:41] LABS: PLATELET ESTIMATE NORMAL
[2021-05-05] MEDS: ACETAMINOPHEN 325MG TABLET PO PRN (08:06)
[2021-05-05] MEDS: PANTOPRAZOLE SODIUM 40 MG/VIAL IV SCH (08:06)
[2021-05-05] MEDS: ASPIRIN 81MG TABLET PO SCH (08:06)
[2021-05-05] MEDS: DEXAMETHASONE 10 MG/ML VIAL IV SCH (08:06)
[2021-05-05 08:30] LABS: BG BASE EXCESS 5.3 mmol/L (-2.0-2.0); BG CARBOXYHEMOGLOBIN 2.1 % (0.5-1.5); BG DEOXYHEMOGLOBIN 41.8 % (0.0-5.0); BG FRACTION INSPIRED OXYGEN 100; BG HCO3 ACT 33.6 mmol/L (22.0-26.0); BG METHEMOGLOBIN 0.4 % (0.0-1.5); BG OXYGEN SATURATION 57.1 % (92.0-98.5); BG OXYHEMOGLOBIN 55.7 % (94.0-97.0); BG PCO2 69.3 mmHg (35.0-45.0); BG PH 7.304 (7.350-7.450); BG SAMPLE SITE LEFT RADIAL; BG TOTAL HEMOGLOBIN 12.3 g/dL (12.0-18.0); BG VENT MODE PRVC
[2021-05-05] MEDS: VECURONIUM BROMIDE 50 MG in DEXTROSE 5% WATER 50 ML IV PRN ×4 (09:10→21:51)
[2021-05-05] MEDS: PHENYLEPHRINE 100 MG in DEXT 5% WATER 240 ML IV PRN ×2 (10:50→21:49)
[2021-05-06] VITALS (97 sets, daily range): BP systolic 100–144; BP diastolic 57–79
[2021-05-06] MEDS: IPRATROPIUM/ALBUTEROL 0.5-3(2.5)MG/3ML NEB HHN SCH ×6 (00:28→21:18)
[2021-05-06] MEDS: ACETYLCYSTEINE 100MG/ML 10% VIAL 4ML INH SCH ×3 (00:28→16:16)
[2021-05-06] MEDS: MIDAZOLAM HCL 100 MG in SODIUM CHLORIDE 0.9% 80 ML IV PRN ×4 (00:52→23:51)
[2021-05-06] MEDS: VECURONIUM BROMIDE 50 MG in DEXTROSE 5% WATER 50 ML IV PRN ×5 (01:52→18:34)
[2021-05-06] MEDS: PROPOFOL 10MG/ML 100ML 100 ML IV PRN ×12 (01:59→22:49)
[2021-05-06] MEDS: FENTANYL CITRATE/PF 2,500 MCG in SODIUM CHLORIDE 0.9% 200 ML IV PRN ×3 (04:28→20:08)
[2021-05-06] MEDS: GUAIFENESIN 200MG/10ML SUGAR FREE UDC PO SCH ×2 (05:53→12:30)
[2021-05-06] MEDS: DEXAMETHASONE 10 MG/ML VIAL IV SCH (08:20)
[2021-05-06] MEDS: PANTOPRAZOLE SODIUM 40 MG/VIAL IV SCH (08:20)
[2021-05-06] MEDS: ASPIRIN 81MG TABLET PO SCH (08:20)
[2021-05-06 08:28] LABS: CHLORIDE 97 mEq/L (98-107); HEMATOCRIT. 30.8 % (42.0-52.0); MEAN CORPUSCULAR HEMOGLOBIN 29.8 pg (28.0-32.0); MEAN CORPUSCULAR VOLUME 91.2 fL (80.0-94.0); MEAN PLATELET VOLUME 8.5 fl (7.4-10.4); PLATELET 317 x1000/uL (130-400); RED BLOOD CELL COUNT 3.37 mill/uL (4.7-6.1); RED CELL DISTRIBUTION WIDTH 15.8 % (11.6-14.6)
[2021-05-06 09:10] LABS: BG BASE EXCESS 1.1 mmol/L (-2.0-2.0); BG CARBOXYHEMOGLOBIN 0.9 % (0.5-1.5); BG DEOXYHEMOGLOBIN 5.1 % (0.0-5.0); BG FRACTION INSPIRED OXYGEN 100; BG METHEMOGLOBIN 0.4 % (0.0-1.5); BG OXYGEN SATURATION 94.8 % (92.0-98.5); BG OXYHEMOGLOBIN 93.6 % (94.0-97.0); BG PCO2 48.6 mmHg (35.0-45.0); BG PH 7.362 (7.350-7.450); BG SAMPLE SITE LEFT RADIAL; BG TOTAL RESPIRATORY RATE 40 b/min; BG VENT MODE VENT- PRVC
[2021-05-06 09:11] LABS: PLATELET ESTIMATE NORMAL
[2021-05-06] MEDS ORDERED: MEROPENEM 500 MG in SODIUM CHLORIDE 0.9% 50 ML IV SCH (11:00)
[2021-05-06 11:41] LABS: BG BASE EXCESS 3.2 mmol/L (-2.0-2.0); BG CARBOXYHEMOGLOBIN 0.7 % (0.5-1.5); BG DEOXYHEMOGLOBIN 5.9 % (0.0-5.0); BG FRACTION INSPIRED OXYGEN 100; BG HCO3 ACT 30.3 mmol/L (22.0-26.0); BG METHEMOGLOBIN 0.4 % (0.0-1.5); BG PCO2 58.3 mmHg (35.0-45.0); BG PH 7.333 (7.350-7.450); BG PO2 74.5 mmHg (75.0-100.0); BG SAMPLE SITE LEFT RADIAL; BG TOTAL HEMOGLOBIN 11.4 g/dL (12.0-18.0); BG TOTAL RESPIRATORY RATE 40 b/min; BG VENT MODE VENT - P/C
[2021-05-06] MEDS: DEXT 5%/0.9% NACL 1,000 ML IV SCH (11:42)
[2021-05-06] MEDS: MEROPENEM 1000MG in NORMAL SALINE 100ML IV SCH ×2 (13:07→20:30)
[2021-05-06] MEDS ORDERED: VANCOMYCIN 2,000 MG in DEXT 5% WATER 500 ML IV NR (14:00)
[2021-05-06] MEDS: PHENYLEPHRINE 100 MG in DEXT 5% WATER 240 ML IV PRN (15:54)
[2021-05-07] VITALS (91 sets, daily range): BP systolic 100–138; BP diastolic 59–80
[2021-05-07] MEDS ORDERED: VANCOMYCIN 1,750 MG in DEXT 5% WATER 250 ML IV SCH
[2021-05-07] MEDS: PROPOFOL 10MG/ML 100ML 100 ML IV PRN ×6 (00:13→11:24)
[2021-05-07] MEDS: ACETYLCYSTEINE 100MG/ML 10% VIAL 4ML INH SCH ×3 (00:28→15:58)
[2021-05-07] MEDS: IPRATROPIUM/ALBUTEROL 0.5-3(2.5)MG/3ML NEB HHN SCH ×5 (00:29→21:07)
[2021-05-07] MEDS: VECURONIUM BROMIDE 50 MG in DEXTROSE 5% WATER 50 ML IV PRN ×5 (00:32→23:37)
[2021-05-07] MEDS: DEXT 5%/0.9% NACL 1,000 ML IV SCH ×2 (03:02→23:59)
[2021-05-07] MEDS: FENTANYL CITRATE/PF 2,500 MCG in SODIUM CHLORIDE 0.9% 200 ML IV PRN ×3 (03:35→18:03)
[2021-05-07] MEDS: MEROPENEM 1000MG in NORMAL SALINE 100ML IV SCH ×3 (05:19→20:51)
[2021-05-07 06:08] LABS: HEMATOCRIT. 30.9 % (42.0-52.0); MEAN CORPUSCULAR HEMOGLOBIN 29.6 pg (28.0-32.0); MEAN CORPUSCULAR VOLUME 91.3 fL (80.0-94.0); MEAN PLATELET VOLUME 8.2 fl (7.4-10.4); PLATELET 283 x1000/uL (130-400); RED BLOOD CELL COUNT 3.39 mill/uL (4.7-6.1); RED CELL DISTRIBUTION WIDTH 15.7 % (11.6-14.6)
[2021-05-07 06:20] LABS: CHLORIDE 100 mEq/L (98-107)
[2021-05-07] MEDS: MIDAZOLAM HCL 100 MG in SODIUM CHLORIDE 0.9% 80 ML IV PRN ×3 (07:22→21:25)
[2021-05-07 08:33] LABS: BG BASE EXCESS 3.1 mmol/L (-2.0-2.0); BG CARBOXYHEMOGLOBIN 0.1 % (0.5-1.5); BG DEOXYHEMOGLOBIN 3.8 % (0.0-5.0); BG HCO3 ACT 31.2 mmol/L (22.0-26.0); BG METHEMOGLOBIN 0.1 % (0.0-1.5); BG OXYGEN SATURATION 96.2 % (92.0-98.5); BG PCO2 67.2 mmHg (35.0-45.0); BG PH 7.285 (7.350-7.450); BG PO2 93.1 mmHg (75.0-100.0); BG SAMPLE SITE RIGHT RADIAL; BG TOTAL HEMOGLOBIN 11.1 g/dL (12.0-18.0); BG VENT MODE VENT - P/C
[2021-05-07 08:42] LABS: NUCLEATED RED BLOOD CELLS 11 /100 WBC; PLATELET ESTIMATE NORMAL
[2021-05-07] MEDS: ASPIRIN 81MG TABLET PO SCH (08:45)
[2021-05-07] MEDS: PANTOPRAZOLE SODIUM 40 MG/VIAL IV SCH (08:45)
[2021-05-07] MEDS: DEXAMETHASONE 10 MG/ML VIAL IV SCH (08:45)
[2021-05-07] MEDS: VANCOMYCIN 1500MG in DEXTROSE 5% WATER 250ML IV SCH ×2 (12:39→20:52)
[2021-05-07 14:13] LABS: BG BASE EXCESS 2.1 mmol/L (-2.0-2.0); BG CARBOXYHEMOGLOBIN 0.5 % (0.5-1.5); BG DEOXYHEMOGLOBIN 2.8 % (0.0-5.0); BG FRACTION INSPIRED OXYGEN 100; BG HCO3 ACT 29.1 mmol/L (22.0-26.0); BG METHEMOGLOBIN 0.4 % (0.0-1.5); BG OXYGEN SATURATION 97.2 % (92.0-98.5); BG OXYHEMOGLOBIN 96.3 % (94.0-97.0); BG PCO2 57.3 mmHg (35.0-45.0); BG PH 7.323 (7.350-7.450); BG PO2 99.8 mmHg (75.0-100.0); BG SAMPLE SITE LEFT RADIAL; BG TOTAL HEMOGLOBIN 10.9 g/dL (12.0-18.0); BG TOTAL RESPIRATORY RATE 41 b/min; BG VENT MODE VENT - P/C
[2021-05-08] VITALS (90 sets, daily range): BP systolic 95–149; BP diastolic 46–78
[2021-05-08] MEDS: IPRATROPIUM/ALBUTEROL 0.5-3(2.5)MG/3ML NEB HHN SCH ×6 (01:02→20:08)
[2021-05-08] MEDS: ACETYLCYSTEINE 100MG/ML 10% VIAL 4ML INH SCH ×3 (01:02→16:20)
[2021-05-08] MEDS: FENTANYL CITRATE/PF 2,500 MCG in SODIUM CHLORIDE 0.9% 200 ML IV PRN ×3 (01:16→16:16)
[2021-05-08 03:39] LABS: CHLORIDE 102 mEq/L (98-107)
[2021-05-08] MEDS: VANCOMYCIN 1500MG in DEXTROSE 5% WATER 250ML IV SCH (03:39)
[2021-05-08] MEDS: MIDAZOLAM HCL 100 MG in SODIUM CHLORIDE 0.9% 80 ML IV PRN ×3 (05:01→20:42)
[2021-05-08] MEDS: VECURONIUM BROMIDE 50 MG in DEXTROSE 5% WATER 50 ML IV PRN ×4 (05:02→22:43)
[2021-05-08 06:01] LABS: HEMATOCRIT. 30.9 % (42.0-52.0); HEMOGLOBIN. 10.2 g/dL (14.0-18.0); MEAN CORPUSCULAR HEMOGLOBIN 29.8 pg (28.0-32.0); MEAN CORPUSCULAR VOLUME 90.2 fL (80.0-94.0); MEAN PLATELET VOLUME 8.2 fl (7.4-10.4); PLATELET 285 x1000/uL (130-400); RED BLOOD CELL COUNT 3.43 mill/uL (4.7-6.1)
[2021-05-08] MEDS: PROPOFOL 10MG/ML 100ML 100 ML IV PRN ×8 (07:34→22:08)
[2021-05-08] MEDS: ASPIRIN 81MG TABLET PO SCH (08:13)
[2021-05-08] MEDS: PANTOPRAZOLE SODIUM 40 MG/VIAL IV SCH (08:13)
[2021-05-08] MEDS: DEXAMETHASONE 10 MG/ML VIAL IV SCH (08:13)
[2021-05-08 10:29] LABS: BG BASE EXCESS 3.6 mmol/L (-2.0-2.0); BG CARBOXYHEMOGLOBIN 1.5 % (0.5-1.5); BG DEOXYHEMOGLOBIN 18.5 % (0.0-5.0); BG FRACTION INSPIRED OXYGEN 100; BG HCO3 ACT 31.5 mmol/L (22.0-26.0); BG METHEMOGLOBIN 0.4 % (0.0-1.5); BG OXYGEN SATURATION 81.1 % (92.0-98.5); BG OXYHEMOGLOBIN 79.6 % (94.0-97.0); BG PCO2 64.2 mmHg (35.0-45.0); BG PH 7.308 (7.350-7.450); BG PO2 45.8 mmHg (75.0-100.0); BG SAMPLE SITE RIGHT RADIAL; BG TOTAL HEMOGLOBIN 12.1 g/dL (12.0-18.0); BG VENT MODE VENT - P/C
[2021-05-08] MEDS: DEXT 5%/0.9% NACL 1,000 ML IV SCH (11:54)
[2021-05-08] MEDS: MEROPENEM 1000MG in NORMAL SALINE 100ML IV SCH ×2 (11:54→20:11)
[2021-05-08 13:37] LABS: BG BASE EXCESS 5.4 mmol/L (-2.0-2.0); BG CARBOXYHEMOGLOBIN 1.5 % (0.5-1.5); BG DEOXYHEMOGLOBIN 18.1 % (0.0-5.0); BG FRACTION INSPIRED OXYGEN 100; BG HCO3 ACT 32.9 mmol/L (22.0-26.0); BG METHEMOGLOBIN 0.2 % (0.0-1.5); BG OXYGEN SATURATION 81.6 % (92.0-98.5); BG OXYHEMOGLOBIN 80.2 % (94.0-97.0); BG PCO2 64.2 mmHg (35.0-45.0); BG PH 7.328 (7.350-7.450); BG SAMPLE SITE RIGHT RADIAL; BG TOTAL HEMOGLOBIN 11.4 g/dL (12.0-18.0); BG VENT MODE VENT - P/C
[2021-05-08] MEDS: VANCOMYCIN 1250MG in DEXTROSE 5% WATER 250ML IV SCH ×2 (14:28→21:17)
[2021-05-08] MEDS: ACETAMINOPHEN 325MG TABLET PO PRN (20:11)
[2021-05-09] VITALS (86 sets, daily range): BP systolic 86–130; BP diastolic 36–74
[2021-05-09] MEDS: PROPOFOL 10MG/ML 100ML 100 ML IV PRN ×13 (00:14→23:57)
[2021-05-09] MEDS: ACETYLCYSTEINE 100MG/ML 10% VIAL 4ML INH SCH ×2 (00:14→08:45)
[2021-05-09] MEDS: IPRATROPIUM/ALBUTEROL 0.5-3(2.5)MG/3ML NEB HHN SCH ×6 (00:14→19:57)
[2021-05-09] MEDS: FENTANYL CITRATE/PF 2,500 MCG in SODIUM CHLORIDE 0.9% 200 ML IV PRN ×4 (00:20→23:36)
[2021-05-09 02:44] LABS: NUCLEATED RED BLOOD CELLS 6 /100 WBC; PLATELET ESTIMATE NORMAL
[2021-05-09] MEDS: DEXT 5%/0.9% NACL 1,000 ML IV SCH ×2 (02:52→16:56)
[2021-05-09] MEDS: VECURONIUM BROMIDE 50 MG in DEXTROSE 5% WATER 50 ML IV PRN ×2 (03:02→09:26)
[2021-05-09] MEDS: MEROPENEM 1000MG in NORMAL SALINE 100ML IV SCH ×3 (04:17→20:00)
[2021-05-09] MEDS: MIDAZOLAM HCL 100 MG in SODIUM CHLORIDE 0.9% 80 ML IV PRN ×3 (04:33→19:44)
[2021-05-09] MEDS: VANCOMYCIN 1250MG in DEXTROSE 5% WATER 250ML IV SCH ×2 (05:00→13:48)
[2021-05-09 08:56] LABS: CHLORIDE 105 mEq/L (98-107); HEMATOCRIT. 28.9 % (42.0-52.0); HEMOGLOBIN. 9.2 g/dL (14.0-18.0); MEAN CORPUSCULAR HEMOGLOBIN 29.5 pg (28.0-32.0); MEAN CORPUSCULAR VOLUME 92.7 fL (80.0-94.0); MEAN PLATELET VOLUME 8.7 fl (7.4-10.4); PLATELET 236 x1000/uL (130-400); RED BLOOD CELL COUNT 3.12 mill/uL (4.7-6.1); RED CELL DISTRIBUTION WIDTH 16.1 % (11.6-14.6)
[2021-05-09] MEDS: ASPIRIN 81MG TABLET PO SCH (09:00)
[2021-05-09] MEDS: DEXAMETHASONE 10 MG/ML VIAL IV SCH (09:11)
[2021-05-09] MEDS: PANTOPRAZOLE SODIUM 40 MG/VIAL IV SCH (09:11)
[2021-05-09 10:54] LABS: BG BASE EXCESS 4.4 mmol/L (-2.0-2.0); BG CARBOXYHEMOGLOBIN 0.6 % (0.5-1.5); BG FRACTION INSPIRED OXYGEN 100; BG HCO3 ACT 30.2 mmol/L (22.0-26.0); BG METHEMOGLOBIN 0.3 % (0.0-1.5); BG OXYHEMOGLOBIN 94.1 % (94.0-97.0); BG PCO2 51.8 mmHg (35.0-45.0); BG PH 7.384 (7.350-7.450); BG PO2 74.5 mmHg (75.0-100.0); BG SAMPLE SITE RIGHT RADIAL; BG TOTAL HEMOGLOBIN 9.9 g/dL (12.0-18.0); BG VENT MODE VENT - P/C
[2021-05-09] MEDS: ENOXAPARIN 40MG/0.4ML SYR SUBCUT SCH ×2 (11:14→20:00)
[2021-05-09 21:56] LABS: PLATELET ESTIMATE NORMAL
[2021-05-10] VITALS (61 sets, daily range): BP systolic 101–247; BP diastolic 58–118
[2021-05-10] MEDS: PROPOFOL 10MG/ML 100ML 100 ML IV PRN ×2 (03:12→07:39)
[2021-05-10] MEDS: MIDAZOLAM HCL 100 MG in SODIUM CHLORIDE 0.9% 80 ML IV PRN ×3 (03:25→21:21)
[2021-05-10] MEDS: IPRATROPIUM/ALBUTEROL 0.5-3(2.5)MG/3ML NEB HHN SCH ×6 (04:11→20:54)
[2021-05-10] MEDS: MEROPENEM 1000MG in NORMAL SALINE 100ML IV SCH ×2 (06:11→12:44)
[2021-05-10 06:33] LABS: CHLORIDE 106 mEq/L (98-107)
[2021-05-10 06:39] LABS: HEMATOCRIT. 28.4 % (42.0-52.0); HEMOGLOBIN. 9.3 g/dL (14.0-18.0); MEAN CORPUSCULAR HEMOGLOBIN 29.9 pg (28.0-32.0); MEAN CORPUSCULAR VOLUME 91.3 fL (80.0-94.0); MEAN PLATELET VOLUME 8.8 fl (7.4-10.4); PLATELET 245 x1000/uL (130-400); RED BLOOD CELL COUNT 3.11 mill/uL (4.7-6.1); RED CELL DISTRIBUTION WIDTH 16.1 % (11.6-14.6)
[2021-05-10] MEDS: FENTANYL CITRATE/PF 2,500 MCG in SODIUM CHLORIDE 0.9% 200 ML IV PRN ×3 (07:05→23:04)
[2021-05-10] MEDS: ENOXAPARIN 40MG/0.4ML SYR SUBCUT SCH ×2 (08:13→20:58)
[2021-05-10] MEDS: DEXAMETHASONE 10 MG/ML VIAL IV SCH (08:13)
[2021-05-10] MEDS: ASPIRIN 81MG TABLET PO SCH (08:13)
[2021-05-10] MEDS: DEXT 5%/0.9% NACL 1,000 ML IV SCH ×2 (08:14→23:51)
[2021-05-10 09:58] LABS: BG BASE EXCESS 2.7 mmol/L (-2.0-2.0); BG CARBOXYHEMOGLOBIN 1.1 % (0.5-1.5); BG DEOXYHEMOGLOBIN 2.5 % (0.0-5.0); BG FRACTION INSPIRED OXYGEN 100; BG HCO3 ACT 27.9 mmol/L (22.0-26.0); BG METHEMOGLOBIN 0.4 % (0.0-1.5); BG OXYGEN SATURATION 97.5 % (92.0-98.5); BG PCO2 45.9 mmHg (35.0-45.0); BG PH 7.402 (7.350-7.450); BG PO2 98.2 mmHg (75.0-100.0); BG SAMPLE SITE LEFT RADIAL; BG TOTAL HEMOGLOBIN 10.9 g/dL (12.0-18.0); BG VENT MODE VENT - P/C
[2021-05-10 10:57] LABS: NUCLEATED RED BLOOD CELLS 3 /100 WBC; PLATELET ESTIMATE NORMAL
[2021-05-10] MEDS ORDERED: CEFTRIAXONE 1 G PREMIX 50 ML IV SCH (15:00)
[2021-05-10] MEDS: CEFTRIAXONE 1,000 MG in DEXTROSE 5% WATER 50 ML IV SCH (17:25)
[2021-05-10] MEDS ORDERED: HYDRALAZINE 20MG/ML VIAL IV PRN (22:30)
[2021-05-10] MEDS ORDERED: LABETALOL 5MG/ML SYR 20 MG/4 ML SYRINGE IV PRN (23:30)
[2021-05-11] VITALS (46 sets, daily range): BP systolic 90–169; BP diastolic 46–80
[2021-05-11] MEDS: IPRATROPIUM/ALBUTEROL 0.5-3(2.5)MG/3ML NEB HHN SCH ×5 (01:18→20:49)
[2021-05-11] MEDS ORDERED: LABETALOL 5MG/ML SYR 20 MG/4 ML SYRINGE IV PRN (02:00)
[2021-05-11] MEDS: PROPOFOL 10MG/ML 100ML 100 ML IV PRN ×10 (05:54→23:14)
[2021-05-11] MEDS: MIDAZOLAM HCL 100 MG in SODIUM CHLORIDE 0.9% 80 ML IV PRN ×3 (05:55→20:54)
[2021-05-11] MEDS: FENTANYL CITRATE/PF 2,500 MCG in SODIUM CHLORIDE 0.9% 200 ML IV PRN ×3 (06:27→20:13)
[2021-05-11 07:13] LABS: HEMATOCRIT. 34.7 % (42.0-52.0); HEMOGLOBIN. 11.1 g/dL (14.0-18.0); MEAN CORPUSCULAR HEMOGLOBIN 29.3 pg (28.0-32.0); MEAN CORPUSCULAR VOLUME 91.9 fL (80.0-94.0); PLATELET 267 x1000/uL (130-400); RED BLOOD CELL COUNT 3.77 mill/uL (4.7-6.1); RED CELL DISTRIBUTION WIDTH 16.3 % (11.6-14.6)
[2021-05-11] MEDS: ENOXAPARIN 40MG/0.4ML SYR SUBCUT SCH ×2 (08:32→20:24)
[2021-05-11] MEDS: ASPIRIN 81MG TABLET PO SCH (08:32)
[2021-05-11] MEDS: DEXAMETHASONE 10 MG/ML VIAL IV SCH (08:32)
[2021-05-11 09:14] LABS: CHLORIDE 109 mEq/L (98-107)
[2021-05-11 09:24] LABS: CREATINE KINASE 81 IU/L (39-308)
[2021-05-11 09:28] LABS: BG BASE EXCESS 0.9 mmol/L (-2.0-2.0); BG CARBOXYHEMOGLOBIN 1.3 % (0.5-1.5); BG DEOXYHEMOGLOBIN 29.3 % (0.0-5.0); BG FRACTION INSPIRED OXYGEN 100; BG HCO3 ACT 30.2 mmol/L (22.0-26.0); BG METHEMOGLOBIN 0.2 % (0.0-1.5); BG OXYGEN SATURATION 70.3 % (92.0-98.5); BG OXYHEMOGLOBIN 69.2 % (94.0-97.0); BG PCO2 74.3 mmHg (35.0-45.0); BG PH 7.227 (7.350-7.450); BG PO2 42.8 mmHg (75.0-100.0); BG SAMPLE SITE RIGHT RADIAL; BG TOTAL HEMOGLOBIN 12.3 g/dL (12.0-18.0); BG VENT MODE VENT - P/C
[2021-05-11 13:53] LABS: NUCLEATED RED BLOOD CELLS 5 /100 WBC; PLATELET ESTIMATE NORMAL
[2021-05-11] MEDS ORDERED: SODIUM CHLORIDE 0.45% 500 ML IV ONE (14:45)
[2021-05-11] MEDS: PHENYLEPHRINE 100 MG in DEXT 5% WATER 240 ML IV PRN (15:44)
[2021-05-11] MEDS: CEFTRIAXONE 1,000 MG in DEXTROSE 5% WATER 50 ML IV SCH (16:49)
[2021-05-12] VITALS (40 sets, daily range): BP systolic 100–129; BP diastolic 47–71
[2021-05-12] MEDS: IPRATROPIUM/ALBUTEROL 0.5-3(2.5)MG/3ML NEB HHN SCH ×6 (00:01→22:05)
[2021-05-12] MEDS: PROPOFOL 10MG/ML 100ML 100 ML IV PRN ×12 (01:20→23:08)
[2021-05-12] MEDS: FENTANYL CITRATE/PF 2,500 MCG in SODIUM CHLORIDE 0.9% 200 ML IV PRN ×3 (03:23→19:33)
[2021-05-12 06:43] LABS: HEMATOCRIT. 29.8 % (42.0-52.0); HEMOGLOBIN. 9.8 g/dL (14.0-18.0); MEAN CORPUSCULAR VOLUME 91.5 fL (80.0-94.0); MEAN PLATELET VOLUME 9.3 fl (7.4-10.4); PLATELET 233 x1000/uL (130-400); RED BLOOD CELL COUNT 3.26 mill/uL (4.7-6.1); RED CELL DISTRIBUTION WIDTH 16.3 % (11.6-14.6)
[2021-05-12 07:09] LABS: CHLORIDE 107 mEq/L (98-107)
[2021-05-12] MEDS: MIDAZOLAM HCL 100 MG in SODIUM CHLORIDE 0.9% 80 ML IV PRN (08:11)
[2021-05-12] MEDS: ASPIRIN 81MG TABLET PO SCH (08:41)
[2021-05-12] MEDS: DEXAMETHASONE 10 MG/ML VIAL IV SCH (08:41)
[2021-05-12] MEDS: ENOXAPARIN 40MG/0.4ML SYR SUBCUT SCH ×2 (08:43→22:29)
[2021-05-12 09:05] LABS: NUCLEATED RED BLOOD CELLS 1 /100 WBC; PLATELET ESTIMATE NORMAL
[2021-05-12 09:12] LABS: BG BASE EXCESS 1.6 mmol/L (-2.0-2.0); BG DEOXYHEMOGLOBIN 12.1 % (0.0-5.0); BG FRACTION INSPIRED OXYGEN 100; BG HCO3 ACT 29.5 mmol/L (22.0-26.0); BG METHEMOGLOBIN 0.2 % (0.0-1.5); BG OXYGEN SATURATION 87.8 % (92.0-98.5); BG OXYHEMOGLOBIN 86.7 % (94.0-97.0); BG PCO2 65.1 mmHg (35.0-45.0); BG PH 7.274 (7.350-7.450); BG PO2 56.4 mmHg (75.0-100.0); BG SAMPLE SITE RIGHT RADIAL; BG TOTAL HEMOGLOBIN 10.5 g/dL (12.0-18.0); BG TOTAL RESPIRATORY RATE 40 b/min; BG VENT MODE VENT - P/C
[2021-05-12] MEDS: PHENYLEPHRINE 100 MG in DEXT 5% WATER 240 ML IV PRN (10:20)
[2021-05-12] MEDS: METRONIDAZOLE 500 MG PREMIX 100 ML IV SCH (16:17)
[2021-05-12] MEDS: CEFTRIAXONE 1,000 MG in DEXTROSE 5% WATER 50 ML IV SCH (16:18)
[2021-05-12] MEDS ORDERED: MIDAZOLAM 100MG/100ML PMX 100 ML IV PRN (17:00)
[2021-05-12] MEDS: MIDAZOLAM HCL 100 MG in SODIUM CHLORIDE 0.9% 100 ML IV PRN (17:21)
[2021-05-13] VITALS (74 sets, daily range): BP systolic 100–136; BP diastolic 58–79
[2021-05-13] MEDS: PROPOFOL 10MG/ML 100ML 100 ML IV PRN ×10 (01:08→22:08)
[2021-05-13] MEDS: IPRATROPIUM/ALBUTEROL 0.5-3(2.5)MG/3ML NEB HHN SCH ×6 (01:12→20:20)
[2021-05-13] MEDS: FENTANYL CITRATE/PF 2,500 MCG in SODIUM CHLORIDE 0.9% 200 ML IV PRN ×3 (02:10→16:27)
[2021-05-13] MEDS: MIDAZOLAM HCL 100 MG in SODIUM CHLORIDE 0.9% 100 ML IV PRN ×3 (02:10→16:26)
[2021-05-13] MEDS: METRONIDAZOLE 500 MG PREMIX 100 ML IV SCH ×3 (03:42→16:26)
[2021-05-13] MEDS: PHENYLEPHRINE 100 MG in DEXT 5% WATER 240 ML IV PRN ×2 (04:03→19:37)
[2021-05-13 06:23] LABS: HEMATOCRIT. 28.7 % (42.0-52.0); HEMOGLOBIN. 9.4 g/dL (14.0-18.0); MEAN CORPUSCULAR HEMOGLOBIN 30.1 pg (28.0-32.0); MEAN CORPUSCULAR VOLUME 91.4 fL (80.0-94.0); MEAN PLATELET VOLUME 9.7 fl (7.4-10.4); PLATELET 246 x1000/uL (130-400); RED BLOOD CELL COUNT 3.13 mill/uL (4.7-6.1); RED CELL DISTRIBUTION WIDTH 16.7 % (11.6-14.6)
[2021-05-13] MEDS: ENOXAPARIN 40MG/0.4ML SYR SUBCUT SCH ×2 (08:15→19:37)
[2021-05-13] MEDS: DEXAMETHASONE 10 MG/ML VIAL IV SCH (08:15)
[2021-05-13 10:48] LABS: BG BASE EXCESS -1.7 mmol/L (-2.0-2.0); BG CARBOXYHEMOGLOBIN 1.2 % (0.5-1.5); BG DEOXYHEMOGLOBIN 4.2 % (0.0-5.0); BG FRACTION INSPIRED OXYGEN 100; BG HCO3 ACT 25.2 mmol/L (22.0-26.0); BG METHEMOGLOBIN 0.8 % (0.0-1.5); BG OXYGEN SATURATION 95.7 % (92.0-98.5); BG OXYHEMOGLOBIN 93.8 % (94.0-97.0); BG PCO2 52.8 mmHg (35.0-45.0); BG PH 7.296 (7.350-7.450); BG PO2 79.8 mmHg (75.0-100.0); BG SAMPLE SITE RIGHT RADIAL; BG TOTAL HEMOGLOBIN 10.3 g/dL (12.0-18.0); BG VENT MODE VENT - P/C
[2021-05-13 12:43] LABS: PLATELET ESTIMATE NORMAL
[2021-05-13] MEDS: CEFTRIAXONE 1,000 MG in DEXTROSE 5% WATER 50 ML IV SCH (17:13)
[2021-05-13] MEDS ORDERED: PROPOFOL 10MG/ML 100ML 100 ML IV PRN (19:30)
[2021-05-14] VITALS (86 sets, daily range): BP systolic 109–136; BP diastolic 51–76
[2021-05-14] MEDS: IPRATROPIUM/ALBUTEROL 0.5-3(2.5)MG/3ML NEB HHN SCH ×6 (00:29→20:35)
[2021-05-14] MEDS: METRONIDAZOLE 500 MG PREMIX 100 ML IV SCH ×3 (00:58→17:08)
[2021-05-14] MEDS: PROPOFOL 10MG/ML 100ML 100 ML IV PRN ×6 (00:58→20:33)
[2021-05-14] MEDS: FENTANYL CITRATE/PF 2,500 MCG in SODIUM CHLORIDE 0.9% 200 ML IV PRN ×3 (01:25→16:30)
[2021-05-14] MEDS: MIDAZOLAM HCL 100 MG in SODIUM CHLORIDE 0.9% 100 ML IV PRN ×3 (02:15→16:31)
[2021-05-14 05:53] LABS: HEMATOCRIT. 28.8 % (42.0-52.0); HEMOGLOBIN. 9.5 g/dL (14.0-18.0); MEAN CORPUSCULAR HEMOGLOBIN 29.9 pg (28.0-32.0); MEAN CORPUSCULAR VOLUME 90.7 fL (80.0-94.0); MEAN PLATELET VOLUME 9.3 fl (7.4-10.4); PLATELET 261 x1000/uL (130-400); RED BLOOD CELL COUNT 3.17 mill/uL (4.7-6.1); RED CELL DISTRIBUTION WIDTH 16.7 % (11.6-14.6)
[2021-05-14] MEDS: ENOXAPARIN 40MG/0.4ML SYR SUBCUT SCH ×2 (08:51→20:32)
[2021-05-14] MEDS: DEXAMETHASONE 10 MG/ML VIAL IV SCH (08:51)
[2021-05-14 10:21] LABS: BG BASE EXCESS -1.7 mmol/L (-2.0-2.0); BG CARBOXYHEMOGLOBIN 1.7 % (0.5-1.5); BG DEOXYHEMOGLOBIN 6.1 % (0.0-5.0); BG FRACTION INSPIRED OXYGEN 100; BG HCO3 ACT 24.9 mmol/L (22.0-26.0); BG METHEMOGLOBIN 0.5 % (0.0-1.5); BG OXYGEN SATURATION 93.8 % (92.0-98.5); BG OXYHEMOGLOBIN 91.7 % (94.0-97.0); BG PCO2 50.8 mmHg (35.0-45.0); BG PH 7.309 (7.350-7.450); BG PO2 68.1 mmHg (75.0-100.0); BG SAMPLE SITE LEFT RADIAL; BG TOTAL HEMOGLOBIN 11.7 g/dL (12.0-18.0); BG VENT MODE VENT - P/C
[2021-05-14 14:45] LABS: PLATELET ESTIMATE NORMAL
[2021-05-14] MEDS: CEFEPIME 1,000 MG in DEXTROSE 5% WATER 50 ML IV SCH (16:17)
[2021-05-14] MEDS: PHENYLEPHRINE 100 MG in DEXT 5% WATER 240 ML IV PRN (17:49)
[2021-05-15] VITALS (96 sets, daily range): BP systolic 92–141; BP diastolic 41–73
[2021-05-15] MEDS: METRONIDAZOLE 500 MG PREMIX 100 ML IV SCH ×4 (00:02→23:01)
[2021-05-15] MEDS: FENTANYL CITRATE/PF 2,500 MCG in SODIUM CHLORIDE 0.9% 200 ML IV PRN ×4 (00:02→20:54)
[2021-05-15] MEDS: IPRATROPIUM/ALBUTEROL 0.5-3(2.5)MG/3ML NEB HHN SCH ×5 (00:04→19:58)
[2021-05-15] MEDS: PROPOFOL 10MG/ML 100ML 100 ML IV PRN ×5 (01:01→22:32)
[2021-05-15] MEDS: MIDAZOLAM HCL 100 MG in SODIUM CHLORIDE 0.9% 100 ML IV PRN ×4 (01:02→21:35)
[2021-05-15] MEDS: CEFEPIME 1,000 MG in DEXTROSE 5% WATER 50 ML IV SCH ×2 (02:36→15:04)
[2021-05-15 06:53] LABS: HEMATOCRIT. 30.8 % (42.0-52.0); HEMOGLOBIN. 9.8 g/dL (14.0-18.0); MEAN CORPUSCULAR HEMOGLOBIN 29.4 pg (28.0-32.0); MEAN CORPUSCULAR VOLUME 92.8 fL (80.0-94.0); MEAN PLATELET VOLUME 9.6 fl (7.4-10.4); PLATELET 267 x1000/uL (130-400); RED BLOOD CELL COUNT 3.32 mill/uL (4.7-6.1); RED CELL DISTRIBUTION WIDTH 16.8 % (11.6-14.6)
[2021-05-15] MEDS: DEXAMETHASONE 10 MG/ML VIAL IV SCH (08:48)
[2021-05-15] MEDS: ENOXAPARIN 40MG/0.4ML SYR SUBCUT SCH ×2 (08:49→19:56)
[2021-05-15 09:38] LABS: BG CARBOXYHEMOGLOBIN 1.4 % (0.5-1.5); BG DEOXYHEMOGLOBIN 20.1 % (0.0-5.0); BG FRACTION INSPIRED OXYGEN 100; BG HCO3 ACT 26.4 mmol/L (22.0-26.0); BG METHEMOGLOBIN 0.4 % (0.0-1.5); BG OXYGEN SATURATION 79.5 % (92.0-98.5); BG OXYHEMOGLOBIN 78.1 % (94.0-97.0); BG PCO2 65.5 mmHg (35.0-45.0); BG PH 7.224 (7.350-7.450); BG PO2 46.8 mmHg (75.0-100.0); BG SAMPLE SITE LEFT RADIAL; BG TOTAL HEMOGLOBIN 10.5 g/dL (12.0-18.0); BG VENT MODE VENT - P/C
[2021-05-15 12:07] LABS: NUCLEATED RED BLOOD CELLS 7 /100 WBC; PLATELET ESTIMATE NORMAL
[2021-05-16] VITALS (92 sets, daily range): BP systolic 89–130; BP diastolic 43–68
[2021-05-16] MEDS: IPRATROPIUM/ALBUTEROL 0.5-3(2.5)MG/3ML NEB HHN SCH ×6 (00:45→20:34)
[2021-05-16] MEDS: CEFEPIME 1,000 MG in DEXTROSE 5% WATER 50 ML IV SCH ×2 (03:45→14:58)
[2021-05-16] MEDS: PROPOFOL 10MG/ML 100ML 100 ML IV PRN ×5 (04:23→22:14)
[2021-05-16] MEDS: FENTANYL CITRATE/PF 2,500 MCG in SODIUM CHLORIDE 0.9% 200 ML IV PRN ×3 (04:32→20:05)
[2021-05-16] MEDS: MIDAZOLAM HCL 100 MG in SODIUM CHLORIDE 0.9% 100 ML IV PRN ×3 (05:04→20:06)
[2021-05-16 07:10] LABS: HEMATOCRIT. 27.1 % (42.0-52.0); MEAN CORPUSCULAR HEMOGLOBIN 30.4 pg (28.0-32.0); MEAN CORPUSCULAR VOLUME 91.7 fL (80.0-94.0); MEAN PLATELET VOLUME 9.6 fl (7.4-10.4); PLATELET 268 x1000/uL (130-400); RED BLOOD CELL COUNT 2.96 mill/uL (4.7-6.1); RED CELL DISTRIBUTION WIDTH 16.6 % (11.6-14.6)
[2021-05-16 08:06] LABS: BG BASE EXCESS -2.3 mmol/L (-2.0-2.0); BG CARBOXYHEMOGLOBIN 2.7 % (0.5-1.5); BG DEOXYHEMOGLOBIN 14.9 % (0.0-5.0); BG HCO3 ACT 25.1 mmol/L (22.0-26.0); BG METHEMOGLOBIN 0.5 % (0.0-1.5); BG OXYGEN SATURATION 84.6 % (92.0-98.5); BG OXYHEMOGLOBIN 81.9 % (94.0-97.0); BG PH 7.269 (7.350-7.450); BG PO2 50.1 mmHg (75.0-100.0); BG SAMPLE SITE RIGHT RADIAL; BG TOTAL HEMOGLOBIN 10.3 g/dL (12.0-18.0); BG VENT MODE VENT - P/C
[2021-05-16] MEDS: ENOXAPARIN 40MG/0.4ML SYR SUBCUT SCH ×2 (09:58→21:51)
[2021-05-16] MEDS: DEXAMETHASONE 10 MG/ML VIAL IV SCH (09:58)
[2021-05-16] MEDS: METRONIDAZOLE 500 MG PREMIX 100 ML IV SCH ×3 (09:58→23:44)
[2021-05-16 10:59] LABS: NUCLEATED RED BLOOD CELLS 3 /100 WBC; PLATELET ESTIMATE NORMAL
[2021-05-16 17:56] LABS: CLARITY URINE CLOUDY (CLEAR); COLOR URINE DARK YELLOW (YELLOW); KETONES URINE NEGATIVE (NEGATIVE); LEUKOCYTE ESTERASE URINE TRACE (NEGATIVE); NITRITE URINE NEGATIVE (NEGATIVE); OCCULT BLOOD URINE 2+ (NEGATIVE); PROTEIN URINE 1+ (NEGATIVE); SPECIFIC GRAVITY URINE 1.019 (1.005-1.030)
[2021-05-17] VITALS (72 sets, daily range): BP systolic 80–137; BP diastolic 49–77
[2021-05-17] MEDS: PROPOFOL 10MG/ML 100ML 100 ML IV PRN ×9 (01:57→22:36)
[2021-05-17] MEDS: CEFEPIME 1,000 MG in DEXTROSE 5% WATER 50 ML IV SCH ×2 (02:39→14:44)
[2021-05-17] MEDS: FENTANYL CITRATE/PF 2,500 MCG in SODIUM CHLORIDE 0.9% 200 ML IV PRN ×3 (03:18→17:58)
[2021-05-17] MEDS: MIDAZOLAM HCL 100 MG in SODIUM CHLORIDE 0.9% 100 ML IV PRN ×3 (03:18→17:59)
[2021-05-17 06:15] LABS: HEMOGLOBIN. 9.1 g/dL (14.0-18.0); MEAN CORPUSCULAR HEMOGLOBIN 31.3 pg (28.0-32.0); MEAN CORPUSCULAR VOLUME 93.3 fL (80.0-94.0); MEAN PLATELET VOLUME 9.7 fl (7.4-10.4); PLATELET 285 x1000/uL (130-400); RED BLOOD CELL COUNT 2.89 mill/uL (4.7-6.1); RED CELL DISTRIBUTION WIDTH 17.4 % (11.6-14.6)
[2021-05-17] MEDS: DEXAMETHASONE 10 MG/ML VIAL IV SCH (09:19)
[2021-05-17] MEDS: METRONIDAZOLE 500 MG PREMIX 100 ML IV SCH ×2 (09:19→16:33)
[2021-05-17] MEDS: ENOXAPARIN 40MG/0.4ML SYR SUBCUT SCH ×2 (09:19→20:33)
[2021-05-17 13:29] LABS: NUCLEATED RED BLOOD CELLS 3 /100 WBC; PLATELET ESTIMATE NORMAL
[2021-05-17] MEDS ORDERED: MIDAZOLAM 100MG/100ML PMX 100 ML IV PRN (18:30)
[2021-05-17] MEDS: ACETAMINOPHEN 325MG TABLET PO PRN (20:32)
[2021-05-18] VITALS (86 sets, daily range): BP systolic 87–110; BP diastolic 34–64
[2021-05-18] MEDS: PHENYLEPHRINE 100 MG in DEXT 5% WATER 240 ML IV PRN (00:23)
[2021-05-18] MEDS: PROPOFOL 10MG/ML 100ML 100 ML IV PRN ×10 (00:54→23:02)
[2021-05-18] MEDS: MIDAZOLAM HCL 100 MG in SODIUM CHLORIDE 0.9% 100 ML IV PRN ×4 (01:15→21:26)
[2021-05-18] MEDS: FENTANYL CITRATE/PF 2,500 MCG in SODIUM CHLORIDE 0.9% 200 ML IV PRN ×4 (01:16→23:30)
[2021-05-18] MEDS: CEFEPIME 1,000 MG in DEXTROSE 5% WATER 50 ML IV SCH ×2 (03:10→15:58)
[2021-05-18 05:58] LABS: HEMATOCRIT. 25.2 % (42.0-52.0); HEMOGLOBIN. 8.4 g/dL (14.0-18.0); MEAN CORPUSCULAR HEMOGLOBIN 31.2 pg (28.0-32.0); MEAN CORPUSCULAR VOLUME 93.7 fL (80.0-94.0); MEAN PLATELET VOLUME 9.3 fl (7.4-10.4); PLATELET 338 x1000/uL (130-400); RED CELL DISTRIBUTION WIDTH 17.8 % (11.6-14.6)
[2021-05-18 06:14] LABS: PHOSPHORUS 4.1 mg/dL (2.5-4.9)
[2021-05-18 09:26] LABS: BG BASE EXCESS -1.8 mmol/L (-2.0-2.0); BG CARBOXYHEMOGLOBIN 3.8 % (0.5-1.5); BG DEOXYHEMOGLOBIN 20.7 % (0.0-5.0); BG FRACTION INSPIRED OXYGEN 100; BG HCO3 ACT 26.5 mmol/L (22.0-26.0); BG METHEMOGLOBIN 1.4 % (0.0-1.5); BG OXYGEN SATURATION 78.2 % (92.0-98.5); BG OXYHEMOGLOBIN 74.1 % (94.0-97.0); BG PCO2 66.6 mmHg (35.0-45.0); BG PH 7.217 (7.350-7.450); BG PO2 44.2 mmHg (75.0-100.0); BG SAMPLE SITE LEFT RADIAL; BG TOTAL HEMOGLOBIN 8.9 g/dL (12.0-18.0); BG VENT MODE VENT - P/C
[2021-05-18 09:42] LABS: NUCLEATED RED BLOOD CELLS 8 /100 WBC; PLATELET ESTIMATE NORMAL
[2021-05-18] MEDS: ENOXAPARIN 40MG/0.4ML SYR SUBCUT SCH ×2 (09:48→21:13)
[2021-05-18] MEDS: DEXAMETHASONE 10 MG/ML VIAL IV SCH (09:48)
[2021-05-19] VITALS (89 sets, daily range): BP systolic 82–141; BP diastolic 44–70
[2021-05-19] MEDS: PROPOFOL 10MG/ML 100ML 100 ML IV PRN ×10 (01:06→23:17)
[2021-05-19] MEDS: CEFEPIME 1,000 MG in DEXTROSE 5% WATER 50 ML IV SCH ×2 (02:49→15:53)
[2021-05-19] MEDS: MIDAZOLAM HCL 100 MG in SODIUM CHLORIDE 0.9% 100 ML IV PRN ×3 (04:27→17:39)
[2021-05-19 05:31] LABS: HEMATOCRIT. 25.5 % (42.0-52.0); HEMOGLOBIN. 8.3 g/dL (14.0-18.0); MEAN CORPUSCULAR HEMOGLOBIN 31.2 pg (28.0-32.0); MEAN CORPUSCULAR VOLUME 95.3 fL (80.0-94.0); MEAN PLATELET VOLUME 9.2 fl (7.4-10.4); PLATELET 372 x1000/uL (130-400); RED BLOOD CELL COUNT 2.68 mill/uL (4.7-6.1); RED CELL DISTRIBUTION WIDTH 18.3 % (11.6-14.6)
[2021-05-19 05:41] LABS: PHOSPHORUS 4.6 mg/dL (2.5-4.9)
[2021-05-19] MEDS: PHENYLEPHRINE 100 MG in DEXT 5% WATER 240 ML IV PRN ×2 (06:31→17:00)
[2021-05-19] MEDS: FENTANYL CITRATE/PF 2,500 MCG in SODIUM CHLORIDE 0.9% 200 ML IV PRN ×3 (06:32→21:11)
[2021-05-19] MEDS: DEXAMETHASONE 10 MG/ML VIAL IV SCH (08:41)
[2021-05-19] MEDS: ENOXAPARIN 40MG/0.4ML SYR SUBCUT SCH ×2 (08:42→21:09)
[2021-05-19] MEDS: FUROSEMIDE 100MG/10ML VIAL IVP NR ×2 (09:00→09:56)
[2021-05-19 09:18] LABS: NUCLEATED RED BLOOD CELLS 23 /100 WBC; PLATELET ESTIMATE NORMAL
[2021-05-20] VITALS (86 sets, daily range): BP systolic 66–155; BP diastolic 39–102
[2021-05-20] MEDS: MIDAZOLAM HCL 100 MG in SODIUM CHLORIDE 0.9% 100 ML IV PRN ×3 (01:07→23:57)
[2021-05-20] MEDS: PROPOFOL 10MG/ML 100ML 100 ML IV PRN ×7 (01:27→22:11)
[2021-05-20] MEDS: FENTANYL CITRATE/PF 2,500 MCG in SODIUM CHLORIDE 0.9% 200 ML IV PRN ×2 (04:39→20:25)
[2021-05-20] MEDS: PHENYLEPHRINE 100 MG in DEXT 5% WATER 240 ML IV PRN ×3 (04:40→22:20)
[2021-05-20 05:59] LABS: HEMATOCRIT. 24.3 % (42.0-52.0); HEMOGLOBIN. 8.5 g/dL (14.0-18.0); MEAN CORPUSCULAR HEMOGLOBIN 33.3 pg (28.0-32.0); MEAN PLATELET VOLUME 9.4 fl (7.4-10.4); PLATELET 384 x1000/uL (130-400); RED BLOOD CELL COUNT 2.56 mill/uL (4.7-6.1)
[2021-05-20 06:15] LABS: PHOSPHORUS 4.9 mg/dL (2.5-4.9)
[2021-05-20 08:11] LABS: BG BASE EXCESS -8.8 mmol/L (-2.0-2.0); BG CARBOXYHEMOGLOBIN 4.1 % (0.5-1.5); BG DEOXYHEMOGLOBIN 20.5 % (0.0-5.0); BG FRACTION INSPIRED OXYGEN 1; BG HCO3 ACT 19.8 mmol/L (22.0-26.0); BG METHEMOGLOBIN 2.1 % (0.0-1.5); BG OXYGEN SATURATION 78.1 % (92.0-98.5); BG OXYHEMOGLOBIN 73.3 % (94.0-97.0); BG PCO2 58.4 mmHg (35.0-45.0); BG PH 7.149 (7.350-7.450); BG SAMPLE SITE RIGHT RADIAL; BG TOTAL HEMOGLOBIN 8.6 g/dL (12.0-18.0); BG TOTAL RESPIRATORY RATE 40 b/min; BG VENT MODE VENT - P/C
[2021-05-20] MEDS ORDERED: SODIUM BICARBONATE 8.4% 1 MEQ/ML 50ML SYR IV SCH ×2 (09:00→13:45)
[2021-05-20] MEDS ORDERED: SODIUM CHLORIDE 0.9% 1,000 ML IV SCH (09:00)
[2021-05-20] MEDS: SODIUM BICARBONATE 100 MEQ in SODIUM CHLORIDE 0.9% 1,000 ML IV SCH (09:18)
[2021-05-20 09:59] LABS: NUCLEATED RED BLOOD CELLS 23 /100 WBC
[2021-05-20 10:00] LABS: PLATELET ESTIMATE NORMAL
[2021-05-20] MEDS: FUROSEMIDE 100MG/10ML VIAL IVP NR ×2 (12:00→14:10)
[2021-05-20 13:11] LABS: BG CARBOXYHEMOGLOBIN 4.3 % (0.5-1.5); BG DEOXYHEMOGLOBIN 24.2 % (0.0-5.0); BG FRACTION INSPIRED OXYGEN 100; BG HCO3 ACT 19.7 mmol/L (22.0-26.0); BG METHEMOGLOBIN 2.2 % (0.0-1.5); BG OXYGEN SATURATION 74.1 % (92.0-98.5); BG OXYHEMOGLOBIN 69.3 % (94.0-97.0); BG PCO2 59.3 mmHg (35.0-45.0); BG PH 7.139 (7.350-7.450); BG PO2 43.2 mmHg (75.0-100.0); BG SAMPLE SITE LEFT RADIAL; BG TOTAL HEMOGLOBIN 8.3 g/dL (12.0-18.0); BG TOTAL RESPIRATORY RATE 40 b/min; BG VENT MODE VENT - P/C
[2021-05-20] MEDS: ENOXAPARIN 40MG/0.4ML SYR SUBCUT SCH ×2 (14:09→21:46)
[2021-05-20] MEDS ORDERED: VANCOMYCIN 2,000 MG in DEXT 5% WATER 500 ML IV SCH (15:00)
[2021-05-20] MEDS: MEROPENEM 500 MG in SODIUM CHLORIDE 0.9% 50 ML IV SCH ×2 (16:05→21:46)
[2021-05-21] VITALS (50 sets, daily range): BP systolic 32–123; BP diastolic 20–71
[2021-05-21] MEDS: PROPOFOL 10MG/ML 100ML 100 ML IV PRN ×5 (00:22→09:02)
[2021-05-21] MEDS: PHENYLEPHRINE 100 MG in DEXT 5% WATER 240 ML IV PRN ×4 (01:30→10:40)
[2021-05-21] MEDS: FENTANYL CITRATE/PF 2,500 MCG in SODIUM CHLORIDE 0.9% 200 ML IV PRN ×2 (04:35→12:34)
[2021-05-21] MEDS: MEROPENEM 500 MG in SODIUM CHLORIDE 0.9% 50 ML IV SCH (05:13)
[2021-05-21 05:59] LABS: HEMATOCRIT. 22.7 % (42.0-52.0); MEAN CORPUSCULAR VOLUME 102.5 fL (80.0-94.0); MEAN PLATELET VOLUME 9.3 fl (7.4-10.4); PLATELET 351 x1000/uL (130-400); RED BLOOD CELL COUNT 2.22 mill/uL (4.7-6.1); RED CELL DISTRIBUTION WIDTH 19.7 % (11.6-14.6)
[2021-05-21] MEDS: SODIUM BICARBONATE 100 MEQ in SODIUM CHLORIDE 0.9% 1,000 ML IV SCH (06:07)
[2021-05-21] MEDS: NOREPINEPHRINE 32 MG in DEXT 5% WATER 218 ML IV PRN ×2 (06:40→13:08)
[2021-05-21] MEDS: MIDAZOLAM HCL 100 MG in SODIUM CHLORIDE 0.9% 100 ML IV PRN ×2 (06:49→12:34)
[2021-05-21 07:14] LABS: MEAN CORPUSCULAR HEMOGLOBIN 31.5 pg (28.0-32.0)
[2021-05-21 07:45] LABS: BG BASE EXCESS -16.4 mmol/L (-2.0-2.0); BG CARBOXYHEMOGLOBIN 4.2 % (0.5-1.5); BG DEOXYHEMOGLOBIN 32.4 % (0.0-5.0); BG FRACTION INSPIRED OXYGEN 100; BG HCO3 ACT 14.6 mmol/L (22.0-26.0); BG METHEMOGLOBIN 2.2 % (0.0-1.5); BG OXYGEN SATURATION 65.4 % (92.0-98.5); BG OXYHEMOGLOBIN 61.2 % (94.0-97.0); BG PCO2 66.5 mmHg (35.0-45.0); BG PH 6.959 (7.350-7.450); BG PO2 43.6 mmHg (75.0-100.0); BG SAMPLE SITE LEFT RADIAL; BG TOTAL HEMOGLOBIN 7.5 g/dL (12.0-18.0); BG TOTAL RESPIRATORY RATE 40 b/min; BG VENT MODE VENT - P/C
[2021-05-21] MEDS ORDERED: FUROSEMIDE 100MG/10ML VIAL IVP SCH (07:45)
[2021-05-21] MEDS: ENOXAPARIN 40MG/0.4ML SYR SUBCUT SCH (07:58)
[2021-05-21] MEDS ORDERED: SODIUM BICARBONATE 8.4% 1 MEQ/ML 50ML SYR IV ONE ×2 (08:00→08:49)
[2021-05-21] MEDS ORDERED: CALCIUM CHLORIDE 1GM/10ML SYR IV ONE (08:49)
[2021-05-21] MEDS ORDERED: EPINEPHRINE 0.1MG/ML (1:10,000) 10ML SYR ONE (08:49)
[2021-05-21] MEDS ORDERED: DEXTROSE 50% WATER 50ML SYRINGE IV ONE (08:49)
[2021-05-21 09:43] LABS: PHOSPHORUS 7.7 mg/dL (2.5-4.9)
[2021-05-21 10:09] LABS: NUCLEATED RED BLOOD CELLS 71 /100 WBC; PLATELET ESTIMATE NORMAL
[2021-05-21] MEDS ORDERED: DOPAMINE 800MG PREMIX (DOUBLE) 250 ML IV PRN (11:45)
[2021-05-21] MEDS ORDERED: VASOPRESSIN 20 UNIT in SODIUM CHLORIDE 0.9% 99 ML IV PRN (11:45)
== END 2021-05-21 14:12 | DRG 5 ==
LOC: ER 14:56 → 7WST 18:53 → EDBEDREQ 18:55 → ENRESERV 19:45 → 7EST 04-07 17:49 → 5EST 04-09 10:36 → MICUSO 04-09 12:36 → CVICU 04-10 14:47
PROVIDERS: ADMIT Internal Medicine; ATTEND Internal Medicine
PROC: 5A09457 Assistance with Respiratory Ventilation, 24-96 Consecutive Hours, Continuous Positive Airway Pressure (ICD-10-PCS; 2021-04-09)
PROC: 5A1955Z Respiratory Ventilation, Greater than 96 Consecutive Hours (ICD-10-PCS; 2021-04-12)
PROC: 0BH17EZ Insertion of Endotracheal Airway into Trachea, Via Natural or Artificial Opening (ICD-10-PCS; 2021-04-12)
PROC: 05HY33Z Insertion of Infusion Device into Upper Vein, Percutaneous Approach (ICD-10-PCS; 2021-04-12)
PROC: B54MZZA Ultrasonography of Right Upper Extremity Veins, Guidance (ICD-10-PCS; 2021-04-12)
PROC: 0B110F4 Bypass Trachea to Cutaneous with Tracheostomy Device, Open Approach (ICD-10-PCS; 2021-05-02)
PROC: B54NZZA Ultrasonography of Left Upper Extremity Veins, Guidance (ICD-10-PCS; 2021-05-10)
PROC: 05HY33Z Insertion of Infusion Device into Upper Vein, Percutaneous Approach (ICD-10-PCS; 2021-05-10)
PROC: 5A12012 Performance of Cardiac Output, Single, Manual (ICD-10-PCS; principal; 2021-05-21)
DX: A41.53 Sepsis due to Serratia (principal); N17.0 Acute kidney failure with tubular necrosis; I46.9 Cardiac arrest, cause unspecified; J12.82 Pneumonia due to coronavirus disease 2019; R65.21 Severe sepsis with septic shock; E44.0 Moderate protein-calorie malnutrition; U07.1 COVID-19; J15.6 Pneumonia due to other Gram-negative bacteria; J96.01 Acute respiratory failure with hypoxia; J96.02 Acute respiratory failure with hypercapnia; G93.40 Encephalopathy, unspecified; I50.43 Acute on chronic combined systolic (congestive) and diastolic (congestive) heart failure; E66.01 Morbid (severe) obesity due to excess calories; Z68.43 Body mass index [BMI] 50.0-59.9, adult; E11.22 Type 2 diabetes mellitus with diabetic chronic kidney disease; E83.51 Hypocalcemia; E87.1 Hypo-osmolality and hyponatremia; E87.2 Acidosis; E87.5 Hyperkalemia; I16.0 Hypertensive urgency; J93.9 Pneumothorax, unspecified; I48.91 Unspecified atrial fibrillation; I13.2 Hypertensive heart and chronic kidney disease with heart failure and with stage 5 chronic kidney disease, or end stage renal disease; K92.2 Gastrointestinal hemorrhage, unspecified; N18.6 End stage renal disease; N39.0 Urinary tract infection, site not specified; Z78.9 Other specified health status; Z78.1 Physical restraint status; Z82.49 Family history of ischemic heart disease and other diseases of the circulatory system; Z99.11 Dependence on respirator [ventilator] status
CPT/HCPCS: 36415; 36600; 71045; 76770; 76937; 80048; 80053; 80061; 80076; 80202; 80305; 80320; 81003; 82375; 82550; 82553; 82607; 82728; 82746; 82805; 82962; 83036; 83540; 83550; 83615; 83735; 83880; 84100; 84145; 84478; 84484; 85025; 85027; 85379; 86140; 87070; 87077; 87106; 87186; 87426; 87804; 92950; 93005; 93306; 93970; 94003; 94640; 94660; 95816; 99285; A6261; C1725; C9113; J0360; J0456; J0461; J0692; J0696; J1100; J1265; J1450; J1650; J1885; J1940; J2185; J2250; J2370; J2405; J2543; J2704; J3010; J3370; J3490; J7030; J7040; J7042; J7050; J7060; J7608; U0003; U0005; A4315; G0480